=== PATIENT | male | born 1965 | race Caucasian/White ===

== ENCOUNTER 2021-12-18 10:39 | Emergency (ER) | payer SELFPAY ==
[~2021-12-18] VITALS: Ht 185 cm; Wt 90.0 kg
--- NOTE | 2021-12-18 10:57 | ED Cardiac General ---
History of Present Illness General Chief Complaint: Chest Pain Stated Complaint: CHEST PAIN Source: patient Exam Limitations: no limitations History of Present Illness Date Seen by Provider: Dec 18, 2021 Time Seen by Provider: 10:42 Initial Comments 56-year-old male with past medical history of CAD s/p CABG and HTN coming in due to 1 minute of feeling like his chest was "quivering" around midnight last night. He says he woke up from a dream and felt this happening. He says he felt like his chest was shaking but his body was not moving. It went away on its own and he has been at his normal baseline since then. He says that it was not painful, did not feel short of breath, no cough, no fever, abdominal pain, nausea, vomiting, weakness, numbness, or any other concerns. He says he had the bypass surgery around 5 years ago in [place] when he just blacked out out of nowhere and they said his heart was not working like it should. He says the doctor that did the surgeon has since retired, and he also lost insurance and has not had follow-up in some time. He says he takes a baby aspirin every once while but otherwise is not taking any other medications. He said he used to be on lisinopril but is not taking that. He says he is never really been on any blood thinners that he knows of. He is otherwise denying any other acute complaints Allergies and Home Medications Allergies Coded Allergies: No Known Drug Allergies (Unverified , 12/18/21) Patient Home Medication List Home Medication List Reviewed: Yes Review of Systems Review of Systems Constitutional: No chills, No fever EENTM: No Blurred Vision Respiratory: Denies Cough, Denies Shortness of Air Cardiovascular: Denies Chest Pain Gastrointestinal: Denies Abdominal Pain, Denies Diarrhea, Denies Nausea, Denies Vomiting Genitourinary: No Symptoms Reported Musculoskeletal: no symptoms reported Skin: no symptoms reported Psychiatric/Neurological: No Symptoms Reported Endocrine: No Symptoms Reported Hematologic/Lymphatic: No Symptoms Reported All Other Systems Reviewed Negative Unless Noted: Yes Past Epinljh-Gansiv-[id number] Hx Patient Social History Tobacco Use?: Yes (chewing tobacco) Substance use?: No Alcohol Use?: Yes Alcohol type: Beer Past Medical History Surgeries: Yes CABG Physical Exam Vital Signs Vital Signs - First Documented 12/18/21 10:43 Temp 36.9 Pulse 70 Resp 18 B/P (MAP) 174/98 (123) Pulse Ox 97 O2 Delivery Room Air Capillary Refill : Height, Weight, BMI Height: '" Weight: lbs. oz. kg; BMI Method: General Appearance: No Apparent Distress, WD/WN HEENT: PERRL/EOMI, Normal ENT Inspection, Pharynx Normal Neck: Full Range of Motion, Normal Inspection, Non Tender, Supple Respiratory: Chest Non Tender, Lungs Clear, Normal Breath Sounds, No Accessory Muscle Use, No Respiratory Distress Cardiovascular: Regular Rate, Rhythm, No Edema, Normal Peripheral Pulses Gastrointestinal: Normal Bowel Sounds, Non Tender, Soft; No Distended, No Guarding Extremity: Normal Capillary Refill, Normal Inspection, Normal Range of Motion, Non Tender, No Calf Tenderness, No Pedal Edema Neurologic/Psychiatric: Alert, No Motor/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, Normal Mood/Affect Skin: Normal Color, Warm/Dry Lymphatic: No Adenopathy Progress/Results/Core Measures Results/Orders Lab Results Laboratory Tests Test 12/18/21 10:48 Range/Units White Blood Count 6.7 4.3-11.0 10^3/uL Red Blood Count 5.13 4.30-5.52 10^6/uL Hemoglobin 15.5 13.3-17.7 g/dL Hematocrit 45 40-54 % Mean Corpuscular Volume 88 80-99 fL Mean Corpuscular Hemoglobin 30 25-34 pg Mean Corpuscular Hemoglobin Concent 34 32-36 g/dL Red Cell Distribution Width 12.2 10.0-14.5 % Platelet Count 195 130-400 10^3/uL Mean Platelet Volume 11.4 9.0-12.2 fL Immature Granulocyte % (Auto) 0 % Neutrophils (%) (Auto) 62 42-75 % Lymphocytes (%) (Auto) 27 12-44 % Monocytes (%) (Auto) 8 0-12 % Eosinophils (%) (Auto) 3 0-10 % Basophils (%) (Auto) 1 0-10 % Neutrophils # (Auto) 4.1 1.8-7.8 10^3/uL Lymphocytes # (Auto) 1.8 1.0-4.0 10^3/uL Monocytes # (Auto) 0.5 0.0-1.0 10^3/uL Eosinophils # (Auto) 0.2 0.0-0.3 10^3/uL Basophils # (Auto) 0.0 0.0-0.1 10^3/uL Immature Granulocyte # (Auto) 0.0 0.0-0.1 10^3/uL Prothrombin Time 13.2 12.2-14.7 SEC INR Comment 1.0 0.8-1.4 Activated Partial Thromboplast Time 32 24-35 SEC Sodium Level 141 135-145 MMOL/L Potassium Level 4.2 3.6-5.0 MMOL/L Chloride Level 106 98-107 MMOL/L Carbon Dioxide Level 23 21-32 MMOL/L Anion Gap 12 5-14 MMOL/L Blood Urea Nitrogen 14 7-18 MG/DL Creatinine 0.80 0.60-1.30 MG/DL Estimat Glomerular Filtration Rate 104 BUN/Creatinine Ratio 18 Glucose Level 144 H 70-105 MG/DL Calcium Level 9.9 8.5-10.1 MG/DL Corrected Calcium 8.5-10.1 MG/DL Magnesium Level 2.0 1.6-2.4 MG/DL Total Bilirubin 0.5 0.1-1.0 MG/DL Aspartate Amino Transf (AST/SGOT) 22 5-34 U/L Alanine Aminotransferase (ALT/SGPT) 25 0-55 U/L Alkaline Phosphatase 84 40-136 U/L Troponin I < 0.30 <0.30 NG/ML Pro-B-Type Natriuretic Peptide 433.1 H <75.0 PG/ML Total Protein 7.6 6.4-8.2 GM/DL Albumin 4.8 H 3.2-4.5 GM/DL My Orders Orders - BERNICE PENA MD Cbc With Automated Diff (12/18/21 10:57) Magnesium (12/18/21 10:57) Chest 1 View Ap/Pa Only (12/18/21 10:57) Ekg Tracing (12/18/21 10:57) Comprehensive Metabolic Panel (12/18/21 10:57) Protime With Inr (12/18/21 10:57) Partial Thromboplastin Time (12/18/21 10:57) O2 (12/18/21 10:57) Monitor-Rhythm Ecg Trace Only (12/18/21 10:57) Aspirin Chewable Tablet (Baby Aspirin Ch (12/18/21 11:00) Ed Iv/Invasive Line Start (12/18/21 10:57) Troponin I Fs (12/18/21 10:57) Probnp Fs (12/18/21 10:57) Medications Given in ED Current Medications Medications Dose Ordered Sig/Bryan Route Start Time Stop Time Status Last Admin Dose Admin Aspirin 324 mg ONCE ONCE PO 12/18/21 11:00 12/18/21 11:01 DC 12/18/21 11:08 324 MG Vital Signs/I&O 12/18/21 12/18/21 10:43 11:57 Temp 36.9 36.9 Pulse 70 66 Resp 18 18 B/P (MAP) 174/98 (123) 148/89 Pulse Ox 97 97 O2 Delivery Room Air Room Air Progress Progress Note : Progress Note 56-year-old male with above history coming in due to vague symptoms of essentially sounds like his interpretation of palpitations for 1 minute around midnight. ABCs were intact on presentation to the emergency department and vitals were stable. He has been completely asymptomatic for almost 12 hours now. At no point did he have any chest discomfort or shortness of breath. This does not really sound consistent with an ACS type picture. Of unclear exactly what did happen, however he does appear to be stable and well-appearing. I am concerned however that he is Ponce taking any medications that he has previously been prescribed. I will recommend he at least start daily aspirin and will refer him back to [facility] to try to get established. His blood pressure was elevated here, and he used to be on lisinopril. However, he brought his blood pressure cuff from home and was able to provide me a log of numerous blood pressures every day for the past several weeks. He typically runs between 120s to low 130s over 70s. I will hold off on starting him on a blood pressure medicine at this time. Chest x-ray is clear. Basic labs unremarkable including negative troponin. Overall, I believe the patient is stable for discharge with outpatient follow-up. He was sent home with strict return precautions. Initial ECG Impression Date: Dec 18, 2021 Initial ECG Impression Time: 10:44 Initial ECG Rate: 73 Initial ECG Rhythm: Normal Sinus Comment Narrow QRS, normal axis, signs of LVH with high voltages, T wave inversions and ST depressions almost globally which likely secondary to the LVH, no STEMI Diagnostic Imaging Diagonstic Imaging: Xray (chest) Comments [facility] [place], [place] NAME: SHAKEEL DOSHI [facility] REC#: [id number] PT STATUS: REG ER : 1965 PHYSICIAN: BERNICE PENA MD ADMIT DATE: 12/18/21/ER FS Signed Date of Exam:12/18/21 CHEST 1 VIEW AP/PA ONLY EXAMINATION: Chest 1 view HISTORY: Chest pain. COMPARISON: None available. FINDINGS: The lung volumes are normal. No focal consolidation is seen. No large pleural effusion or pneumothorax is seen. The cardiomediastinal silhouette is normal in size with post-CABG changes noted. No acute osseous abnormality is seen. IMPRESSION: 1. No acute pleuroparenchymal process. Dictated by: Dictated on workstation # [id number] Dict: 12/18/21 1118 Trans: 12/18/21 1120 CVB [id number] Interpreted by: IDA CARD DO Electronically signed by: IDA CARD DO 12/18/21 1120 Departure Impression Primary Impression: Palpitations Disposition: HOME, SELF-CARE Condition: Stable Departure-Patient Inst. Decision time for Depature: 11:59 Referrals: [facility] [place] ([place]P/Family) Primary Care Physician Patient Instructions: Palpitations (DC) Add. Discharge Instructions: I think most likely what you are experiencing is what we call palpitations. This has been your heart tends to race and you can have different sensations over your chest such as what you were feeling with the quavering. If this happens again it is prolonged, not stopping, you have chest pain, shortness of breath, or any other concerns then please come back to the ER. Otherwise, I recommend you follow-up with [facility] here to get established and to restart some medications that you may be requiring, especially since you had open heart surgery. I do recommend you take baby aspirin daily. Work/School Note: Work Release Form Date Seen in the Emergency Department: Dec 18, 2021 Return to Work: Dec 18, 2021 Restrictions: No Restrictions BERNICE PENA MD Dec 18, 2021 10:57
[2021-12-18] MEDS ORDERED: inSUlin (REGULAR) HUMAN 1 UNIT/0.01 ML (CHARGE PER UNIT) IV ONE (11:00)
[2021-12-18] MEDS ORDERED: ASPIRIN 81 MG CHEW (CHILDREN'S ASA) PO ONE (11:00)
[2021-12-18] MEDS ORDERED: LACTATED RINGERS 1,000 ML IV SCH (11:00)
--- NOTE | 2021-12-18 11:19 | Diagnostic Imaging Report ---
EXAMINATION: Chest 1 view HISTORY: Chest pain. COMPARISON: None available. FINDINGS: The lung volumes are normal. No focal consolidation is seen. No large pleural effusion or pneumothorax is seen. The cardiomediastinal silhouette is normal in size with post-CABG changes noted. No acute osseous abnormality is seen. IMPRESSION: 1. No acute pleuroparenchymal process. Dictated by: Dictated on workstation # [id number]
[2021-12-18 11:25] LABS: PROTHROMBIN TIME PATIENT 13.2 SEC (12.2-14.7)
[2021-12-18 11:27] LABS: BASOPHILS % (AUTO) 1 % (0-10); EOSINOPHILS # (AUTO) 0.2 10^3/uL (0.0-0.3); EOSINOPHILS % (AUTO) 3 % (0-10); HEMATOCRIT 45 % (40-54); HEMOGLOBIN 15.5 g/dL (13.3-17.7); LYMPHOCYTES # (AUTO) 1.8 10^3/uL (1.0-4.0); LYMPHOCYTES % (AUTO) 27 % (12-44); MEAN CORPUSCULAR HEMOGLOBIN 30 pg (25-34); MEAN CORPUSCULAR HGB CONC 34 g/dL (32-36); MEAN CORPUSCULAR VOLUME 88 fL (80-99); MEAN PLATELET VOLUME 11.4 fL (9.0-12.2); MONOCYTES # (AUTO) 0.5 10^3/uL (0.0-1.0); MONOCYTES % (AUTO) 8 % (0-12); NEUTROPHILS # (AUTO) 4.1 10^3/uL (1.8-7.8); NEUTROPHILS % (AUTO) 62 % (42-75); PLATELET COUNT 195 10^3/uL (130-400); WHITE BLOOD COUNT 6.7 10^3/uL (4.3-11.0)
[2021-12-18 11:38] LABS: ALANINE AMINOTRANSFERASE 25 U/L (0-55); ALBUMIN 4.8 GM/DL (3.2-4.5); ALKALINE PHOSPHATASE 84 U/L (40-136); BILIRUBIN,TOTAL 0.5 MG/DL (0.1-1.0); BUN/CREATININE RATIO 18; CALCIUM 9.9 MG/DL (8.5-10.1); CARBON DIOXIDE 23 MMOL/L (21-32); CHLORIDE 106 MMOL/L (98-107); GFR ESTIMATED 104; GLUCOSE 144 MG/DL (70-105); POTASSIUM 4.2 MMOL/L (3.6-5.0); SODIUM 141 MMOL/L (135-145); TOTAL PROTEIN 7.6 GM/DL (6.4-8.2)
[2021-12-18 11:57] VITALS: BP 148/89
== END 2021-12-18 11:58 | disposition home or self-care (01) ==
LOC: EDUNIT# 10:39 → ER FS 10:41
DX: R00.2 Palpitations (principal); Z72.0 Tobacco use
CPT/HCPCS: 36415; 71045; 80053; 83735; 83880; 84484; 85025; 85610; 85730; 93005; 93041

== ENCOUNTER 2022-03-02 15:50 | Emergency (ER) | payer SELFPAY ==
[2022-03-02 15:58] VITALS: BP 142/89
[2022-03-02 16:09] LABS: BILIRUBIN,URINE NEGATIVE (NEGATIVE); CLARITY,URINE CLEAR; COLOR,URINE YELLOW; GLUCOSE, URINE (UA) NEGATIVE (NEGATIVE); KETONES,URINE NEGATIVE (NEGATIVE); LEUKOCYTE ESTERASE ,URINE NEGATIVE (NEGATIVE); NITRITE,URINE NEGATIVE (NEGATIVE); PROTEIN,URINE NEGATIVE (NEGATIVE)
[2022-03-02] MEDS ORDERED: NS IV 1000 ML 1,000 ML IV STA (16:16)
[2022-03-02 16:17] LABS: BASOPHILS % (AUTO) 1 % (0-10); EOSINOPHILS # (AUTO) 0.1 10^3/uL (0.0-0.3); EOSINOPHILS % (AUTO) 1 % (0-10); HEMATOCRIT 36 % (40-54); HEMOGLOBIN 12.4 g/dL (13.3-17.7); LYMPHOCYTES # (AUTO) 1.5 10^3/uL (1.0-4.0); LYMPHOCYTES % (AUTO) 17 % (12-44); MEAN CORPUSCULAR HEMOGLOBIN 30 pg (25-34); MEAN CORPUSCULAR HGB CONC 34 g/dL (32-36); MEAN CORPUSCULAR VOLUME 87 fL (80-99); MEAN PLATELET VOLUME 10.8 fL (9.0-12.2); MONOCYTES # (AUTO) 0.9 10^3/uL (0.0-1.0); MONOCYTES % (AUTO) 10 % (0-12); NEUTROPHILS # (AUTO) 6.3 10^3/uL (1.8-7.8); NEUTROPHILS % (AUTO) 71 % (42-75); PLATELET COUNT 246 10^3/uL (130-400); WHITE BLOOD COUNT 8.9 10^3/uL (4.3-11.0)
[2022-03-02 16:20] LABS: BACTERIA,URINE TRACE /HPF
[2022-03-02 16:21] LABS: AMPHETAMINE SCREEN, URINE NEGATIVE (NEGATIVE); BARBITURATE SCREEN URINE NEGATIVE (NEGATIVE); BENZODIAZEPINES SCREEN URINE NEGATIVE (NEGATIVE); CANNABINOID SCREEN, URINE NEGATIVE (NEGATIVE); COCAINE SCREEN URINE NEGATIVE (NEGATIVE); METHADONE STAT NEGATIVE (NEGATIVE); OPIATE SCREEN URINE NEGATIVE (NEGATIVE); OXYCODONE STAT NEGATIVE (NEGATIVE); PROPOXYPHENE STAT NEGATIVE (NEGATIVE); SQUAMOUS EPITHELIAL CELL,UR 0-2 /HPF; TRICYCLIC ANTIDEPRESSANTS SCRE NEGATIVE (NEGATIVE)
[2022-03-02 16:49] LABS: SODIUM 140 MMOL/L (135-145)
[2022-03-02 16:50] LABS: ACETAMINOPHEN < 10 UG/ML (10-30); ALANINE AMINOTRANSFERASE 19 U/L (0-55); ALBUMIN 4.1 GM/DL (3.2-4.5); ALKALINE PHOSPHATASE 73 U/L (40-136); BILIRUBIN,TOTAL 1.1 MG/DL (0.1-1.0); BUN/CREATININE RATIO 17; CALCIUM 9.5 MG/DL (8.5-10.1); CARBON DIOXIDE 24 MMOL/L (21-32); CHLORIDE 103 MMOL/L (98-107); CREATININE SERUM 0.81 MG/DL (0.60-1.30); GFR ESTIMATED 103; GLUCOSE 120 MG/DL (70-105); POTASSIUM 3.4 MMOL/L (3.6-5.0); SALICYLATE < 0.3 MG/DL (5.0-20.0); TOTAL PROTEIN 6.1 GM/DL (6.4-8.2)
--- NOTE | 2022-03-02 16:51 | Diagnostic Imaging Report ---
EXAMINATION: Chest radiograph, portable AP view. DATE: 03/02/2022 4:49 PM INDICATION: 56-year-old male, left-sided chest pain. Syncope. COMPARISON: December 18, 2021. FINDINGS: There are median sternotomy wires. Heart size and mediastinal contours are unchanged. There is no identified pneumothorax. There is no large pleural effusion. There is no identified focal airspace consolidation. IMPRESSION: No identified acute cardiopulmonary abnormality. Dictated by: Dictated on workstation # [id number]
--- NOTE | 2022-03-02 16:51 | Diagnostic Imaging Report ---
PROCEDURE: CT head without contrast. TECHNIQUE: Multiple contiguous axial images were obtained through the brain without the use of intravenous contrast. Auto Exposure Controls were utilized during the CT exam to meet ALARA standards for radiation dose reduction. INDICATION: Headache and syncope CT HEAD: CT images of the head were obtained. FINDINGS: Ventricles and sulci are within normal limits for size. There is no intracranial hemorrhage identified. There is no abnormal mass effect or shift of midline structures. IMPRESSION: Unremarkable CT of the head. Dictated by: Dictated on workstation # [id number]
--- NOTE | 2022-03-02 17:22 | ED General ---
General Chief Complaint: Altered Mental Status Stated Complaint: AMS Nursing Triage Note: Patient presents to the ED with c/o confusion. Reports he was driving his truck and the next thing he remembers is waking up in his driveway with no recollection of the past 1 hour. Upon arrival to the ED patient is alert and oriented x4. Source of Information: Patient History of Present Illness Date Seen by Provider: March 02, 2022 Time Seen by Provider: 15:53 Initial Comments 56-year-old male presenting with concern for possible syncopal episode. He states that around 1 PM he had gone to [employer] and then does not remember driving back to his house or pulling into his driveway. He remembers waking up in his truck and looking around and thinking he did not know where he was. He started to drive away and then realized that he was at his own house. Then he had gone over to girlfriend's house and after speaking with her and some family that he convinced him to come to the emergency department to be evaluated. He was having some mild headache to the right side of his head. He denied any fall or injury. He had felt like he had some pain in his chest earlier in the day. He was not having any of that now. He had complained of some left sided lower abdominal pain a few days ago with a loose stool and saw some bright red blood but none since then. He denies any pain with urination. He states he has been under extra stress and not been sleeping well. He also santana d tried to stop drinking alcohol 9 months ago and has been dry since stopping cold turkey 9 months ago but a few days ago he drank a sixpack of beer. He denies having any alcohol or drugs today. He has no fever, chills, pain with urination, back pain, cough, shortness of breath, vision change, nausea, vomiting. Timing/Duration: Gone Now Severity: Moderate Associated Systoms: Chest Pain (earlier today he had some mild pain to left chest but could not tell if it was inside his chest or more chest wall); No Cough, No Diaphoresis, No Fever/Chills; Headaches (mild pressure to right side of head); No Loss of Appetite, No Malaise, No Nausea/Vomiting, No Rash, No Seizure, No Shortness of Air; Syncope; No Weakness Allergies and Home Medications Allergies Coded Allergies: No Known Drug Allergies (Unverified , 12/18/21) Patient Home Medication List Home Medication List Reviewed: Yes Review of Systems Review of Systems Constitutional: No chills, No fever EENTM: other (chronic ringing in right ear for several years); No ear discharge, No hearing loss, No ear pain, No blurred vision, No eye pain, No vision loss, No mouth pain, No epistaxis, No nose congestion, No throat pain Respiratory: No cough, No dyspnea on exertion, No short of breath Cardiovascular: see HPI Gastrointestinal: see HPI Genitourinary: No dysuria, No hematuria Musculoskeletal: No joint swelling, No neck pain Skin: No change in color, No rash Psychiatric/Neurological: See HPI; Denies Numbness, Denies Paresthesia, Denies Tingling, Denies Tremors, Denies Weakness Hematologic/Lymphatic: Denies Blood Clots, Denies Easy Bleeding, Denies Easy Bruising Immunological/Allergic: no symptoms reported Past Zkugezs-Qnqrgc-Yenqwa Hx Patient Social History Tobacco Use?: Yes Smoking Status: Heavy Tobacco Smoker Substance use?: No Alcohol Use?: Yes Alcohol type: Beer Alcohol Frequency: Once in a while Pt feels they are or have been: No Immunizations Up To Date First/Initial COVID19 Vaccinat: Not currently vaccinated Past Medical History Surgery/Hospitalization HX: TRIPLE BYPASS; Palpatations Surgeries: Yes CABG Physical Exam Vital Signs Vital Signs - First Documented 03/02/22 15:58 Temp 36.6 Pulse 67 Resp 18 B/P (MAP) 142/89 (106) Pulse Ox 96 O2 Delivery Room Air Capillary Refill : Less Than 3 Seconds Height, Weight, BMI Height: '" Weight: lbs. oz. kg; 26.00 BMI Method: General Appearance: No Apparent Distress, WD/WN HEENT: PERRL/EOMI, Normal ENT Inspection, Pharynx Normal Neck: Full Range of Motion, Normal Inspection, Non Tender, Supple; No Carotid Bruit Respiratory: Chest Non Tender, Lungs Clear, Normal Breath Sounds, No Accessory Muscle Use, No Respiratory Distress Cardiovascular: Regular Rate, Rhythm, No Edema, No Murmur, Normal Peripheral Pulses Gastrointestinal: Normal Bowel Sounds, No Pulsatile Mass, Non Tender, Soft Rectal: Deferred Back: No CVA Tenderness, No Vertebral Tenderness Extremity: Normal Capillary Refill, Normal Inspection, Normal Range of Motion, Non Tender, No Calf Tenderness, No Pedal Edema Neurologic/Psychiatric: Alert, Oriented x3, No Motor/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, 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 Norm as Tested Skin: Normal Color, Warm/Dry Progress/Results/Core Measures Suspected Sepsis SIRS Temperature: Pulse: 67 Respiratory Rate: 18 Laboratory Tests 03/02/22 16:15: White Blood Count 8.9 Blood Pressure 142 /89 Mean: 106 Laboratory Tests 03/02/22 16:15: Creatinine 0.81, Platelet Count 246, Total Bilirubin 1.1H Results/Orders Lab Results Laboratory Tests Test 03/02/22 15:58 03/02/22 16:15 Range/Units Urine Color YELLOW Urine Clarity CLEAR Urine pH 6.0 5-9 Urine Specific [place] 1.020 1.016-1.022 Urine Protein NEGATIVE NEGATIVE Urine Glucose (UA) NEGATIVE NEGATIVE Urine Ketones NEGATIVE NEGATIVE Urine Nitrite NEGATIVE NEGATIVE Urine Bilirubin NEGATIVE NEGATIVE Urine Urobilinogen 1.0 < = 1.0 MG/DL Urine Leukocyte Esterase NEGATIVE NEGATIVE Urine RBC (Auto) TRACE-I H NEGATIVE Urine RBC 5-10 H /HPF Urine WBC NONE /HPF Urine Squamous Epithelial Cells 0-2 /HPF Urine Crystals NONE /LPF Urine Bacteria TRACE /HPF Urine Casts NONE /LPF Urine Mucus SMALL H /LPF Urine Culture Indicated NO Urine Opiates Screen NEGATIVE NEGATIVE Urine Oxycodone Screen NEGATIVE NEGATIVE Urine Methadone Screen NEGATIVE NEGATIVE Urine Propoxyphene Screen NEGATIVE NEGATIVE Urine Barbiturates Screen NEGATIVE NEGATIVE Ur Tricyclic Antidepressants Screen NEGATIVE NEGATIVE Urine Phencyclidine Screen NEGATIVE NEGATIVE Urine Amphetamines Screen NEGATIVE NEGATIVE Urine Methamphetamines Screen NEGATIVE NEGATIVE Urine Benzodiazepines Screen NEGATIVE NEGATIVE Urine Cocaine Screen NEGATIVE NEGATIVE Urine Cannabinoids Screen NEGATIVE NEGATIVE White Blood Count 8.9 4.3-11.0 10^3/uL Red Blood Count 4.18 L 4.30-5.52 10^6/uL Hemoglobin 12.4 L 13.3-17.7 g/dL Hematocrit 36 L 40-54 % Mean Corpuscular Volume 87 80-99 fL Mean Corpuscular Hemoglobin 30 25-34 pg Mean Corpuscular Hemoglobin Concent 34 32-36 g/dL Red Cell Distribution Width 12.6 10.0-14.5 % Platelet Count 246 130-400 10^3/uL Mean Platelet Volume 10.8 9.0-12.2 fL Immature Granulocyte % (Auto) 0 % Neutrophils (%) (Auto) 71 42-75 % Lymphocytes (%) (Auto) 17 12-44 % Monocytes (%) (Auto) 10 0-12 % Eosinophils (%) (Auto) 1 0-10 % Basophils (%) (Auto) 1 0-10 % Neutrophils # (Auto) 6.3 1.8-7.8 10^3/uL Lymphocytes # (Auto) 1.5 1.0-4.0 10^3/uL Monocytes # (Auto) 0.9 0.0-1.0 10^3/uL Eosinophils # (Auto) 0.1 0.0-0.3 10^3/uL Basophils # (Auto) 0.0 0.0-0.1 10^3/uL Immature Granulocyte # (Auto) 0.0 0.0-0.1 10^3/uL Sodium Level 140 135-145 MMOL/L Potassium Level 3.4 L 3.6-5.0 MMOL/L Chloride Level 103 98-107 MMOL/L Carbon Dioxide Level 24 21-32 MMOL/L Anion Gap 13 5-14 MMOL/L Blood Urea Nitrogen 14 7-18 MG/DL Creatinine 0.81 0.60-1.30 MG/DL Estimat Glomerular Filtration Rate 103 BUN/Creatinine Ratio 17 Glucose Level 120 H 70-105 MG/DL Calcium Level 9.5 8.5-10.1 MG/DL Corrected Calcium 9.4 8.5-10.1 MG/DL Total Bilirubin 1.1 H 0.1-1.0 MG/DL Aspartate Amino Transf (AST/SGOT) 19 5-34 U/L Alanine Aminotransferase (ALT/SGPT) 19 0-55 U/L Alkaline Phosphatase 73 40-136 U/L Total Protein 6.1 L 6.4-8.2 GM/DL Albumin 4.1 3.2-4.5 GM/DL Salicylates Level < 0.3 L 5.0-20.0 MG/DL Acetaminophen Level < 10 L 10-30 UG/ML Serum Alcohol < 10 <10 MG/DL My Orders Orders - TEMITOPE GERMAIN MD Ua Culture If Indicated (03/02/22 15:55) Cbc With Automated Diff (03/02/22 15:55) Comprehensive Metabolic Panel (03/02/22 15:55) Alcohol (03/02/22 15:55) Drug Screen Stat (Urine) (03/02/22 15:55) Acetaminophen (03/02/22 15:55) Salicylate (03/02/22 15:55) Ekg Tracing (03/02/22 15:55) Ed Iv/Invasive Line Start (03/02/22 15:55) Monitor-Rhythm Ecg Trace Only (03/02/22 15:55) Ct Head Wo (03/02/22 16:16) Chest 1 View Ap/Pa Only (03/02/22 16:16) Ns Iv 1000 Ml (Sodium Chloride 0.9%) (03/02/22 16:16) Vital Signs/I&O 03/02/22 15:58 Temp 36.6 Pulse 67 Resp 18 B/P (MAP) 142/89 (106) Pulse Ox 96 O2 Delivery Room Air Capillary Refill : Less Than 3 Seconds Blood Pressure Mean: 106 Progress Note #1: Progress Note No acute abnormality on his physical exam. Advised patient that we will check basic labs and electrocardiogram as well as chest x-ray and CT scan of his head. Try giving some normal saline 1 L IV fluid for hydration. Cardiac telemetry monitoring to see if he had any arrhythmia or ischemic changes Differential diagnosis includes syncope, atrial fibrillation, stress reaction, stroke, heart attack, pneumonia, anemia, panic attack, dehydration, hypotension, hyperglycemia, alcohol abuse Progress Note #2: Progress Note Labs appear stable without elevated white blood cell count or signs of severe anemia. His chemistry panel appeared stable without acute significant abnormality to account for symptoms. Electrocardiogram was stable without ST elevation or ischemic changes. The CT scan of his head and chest did not show any acute process. His chest x-ray reveals clear without acute process. No sign of cardiomegaly, pleural effusion, pneumonia. Urinalysis had mild elevation of specific gravity 1.020. There was no sign of infection. Urine drug screen was negative and his alcohol, salicylate, acetaminophen levels were all negative. Counseled patient on results and findings. He stated he was feeling better after the fluids were given. Advised that this may have been more of a stress reaction from him not sleeping well and being under extra stress recently. He also could have had some dehydration and that exacerbated things. There were no signs of acute coronary syndrome or arrhythmia. No stroke seen on imaging or exam. No acute electrolyte abnormality to account for his symptoms. Counseled on follow-up and return precautions. Advised to return immediately or seek medical care if he was having worsening or new symptoms. Otherwise check back with the clinic this next week about follow-up and see if there was further testing they wanted to do. ECG Initial ECG Impression Date: March 02, 2022 Initial ECG Impression Time: 16:25 Initial ECG Rate: 65 Initial ECG Rhythm: Normal Sinus Initial ECG Comparisson: Unchanged Comment Normal sinus rhythm with a heart rate of 65 bpm. SC interval [address] elevation. LVH with repolarization changes. QT interval 481 ms with a QTc interval 493 ms. Overall tracing appears similar to prior tracing in the system. Diagnostic Imaging Diagonstic Imaging: Xray Plain Films/CT/US/NM/MRI: chest [facility] [place] [place] NAME: SHAKEEL DOSHI [facility] REC#: [id number] PT STATUS: REG ER : 1965 PHYSICIAN: TEMITOPE GERMAIN MD ADMIT DATE: 03/02/22/ER FS Signed Date of Exam:03/02/22 CHEST 1 VIEW AP/PA ONLY EXAMINATION: Chest radiograph, portable AP view. DATE: 03/02/2022 4:49 PM INDICATION: 56-year-old male, left-sided chest pain. Syncope. COMPARISON: December 18, 2021. FINDINGS: There are median sternotomy wires. Heart size and mediastinal contours are unchanged. There is no identified pneumothorax. There is no large pleural effusion. There is no identified focal airspace consolidation. IMPRESSION: No identified acute cardiopulmonary abnormality. Dictated by: Dictated on workstation # [id number] Dict: 03/02/22 1649 Trans: 03/02/221650 [facility] [id number] Interpreted by: WILD PALMA MD Electronically signed by: WILD PALMA MD 03/02/22 165 Reviewed: Reviewed by Me Diagonstic Imaging: CT Plain Films/CT/US/NM/MRI: head Comments [facility] [place] [place] NAME: SHAKEEL DOSHI [facility] REC#: [id number] PT STATUS: REG ER : 1965 PHYSICIAN: TEMITOPE GERMAIN MD ADMIT DATE: 03/02/22/ER FS Signed Date of Exam:03/02/22 CT HEAD WO PROCEDURE: CT head without contrast. TECHNIQUE: Multiple contiguous axial images were obtained through the brain without the use of intravenous contrast. Auto Exposure Controls were utilized during the CT exam to meet ALARA standards for radiation dose reduction. INDICATION: Headache and syncope CT HEAD: CT images of the head were obtained. FINDINGS: Ventricles and sulci are within normal limits for size. There is no intracranial hemorrhage identified. There is no abnormal mass effect or shift of midline structures. IMPRESSION: Unremarkable CT of the head. Dictated by: Dictated on workstation # [id number] Dict: 03/02/22 1649 Trans: 03/02/221649 [id number] Interpreted by: SANDRA CARTER MD Electronically signed by: SANDRA CARTER MD 03/02/221649 Reviewed: Reviewed by Me Departure Impression Primary Impression: Stress reaction Additional Impressions: Syncope Qualified Codes: R55 - Syncope and collapse Dehydration Disposition: HOME, SELF-CARE Condition: Stable Departure-Patient Inst. Decision time for Depature: 17:20 Referrals: [facility] (PCP/Family) Primary Care Physician Patient Instructions: Anxiety, Adult ED, Dehydration, Adult ED, Fainting, Adult ED, Stress Add. Discharge Instructions: Try to drink more fluids and stay better hydrated. Drink plenty of water and electrolyte drinks to help with this. Try to get better rest and sleep on a more regular schedule. Check with your primary care doctor for continued concerns and to see if there was any other work-up or evaluation that they felt was necessary. Call on Saturday when the clinic reopens to see about setting a follow-up appointment. Over the weekend if you have worsening symptoms or recurrent problems return or seek medical care for further evaluation. All discharge instructions reviewed with patient and/or family. Voiced understanding. TEMITOPE GERMAIN MD March 02, 2022 17:22
== END 2022-03-02 17:35 | disposition home or self-care (01) ==
LOC: EDUNIT# 15:50 → ER FS 15:51
DX: R55 Syncope and collapse (principal); F43.9 Reaction to severe stress, unspecified; E86.0 Dehydration; F17.200 Nicotine dependence, unspecified, uncomplicated
CPT/HCPCS: 36415; 70450; 71045; 80053; 80306; 81000; 85025; 93041; 99284; G0480 ×3; 80320; 80329

== ENCOUNTER 2022-08-03 17:38 | Inpatient (IN) | payer SELFPAY ==
[~2022-08-03] VITALS: Ht 185.5 cm; Wt 79.6 kg
--- NOTE | 2022-08-03 17:55 | ED Lower Extremity ---
General Chief Complaint: Lower Extremity Stated Complaint: SWELLING History of Present Illness Date Seen by Provider: Aug 03, 2022 Time Seen by Provider: 17:50 Initial Comments 56-year-old male here for increase shortness of breath increased swelling. Patient has been having swelling for about a month. He does have a cardiac history where he has had heart attack in the past. He was seen Dr. Rose but he is did have his insurance and so is unable to see cardiology. Patient having increased shortness of breath over the past month increased lower extremity edema. Now he is got edema up into his abdomen. Having shortness of breath unable to walk across the room. He is on metoprolol 25 ER lisinopril aspirin atorvastatin. Was seen by his primary care provider and states he was given some diuretics for about 7 days where he started a large dose and tapered down. The swelling went down with that but now it is back. Allergies and Home Medications Allergies Coded Allergies: No Known Drug Allergies (Unverified , 12/18/21) Patient Home Medication List Home Medication List Reviewed: Yes Review of Systems Constitutional: see HPI Past Rstpike-Jngyov-Wrxour Hx Patient Social History Tobacco Use?: No Immunizations Up To Date First/Initial COVID19 Vaccinat: Not currently vaccinated Past Medical History Surgery/Hospitalization HX: TRIPLE BYPASS; Palpatations Surgeries: Yes CABG Physical Exam Vital Signs Vital Signs - First Documented 08/03/22 17:40 Temp 36.7 Pulse 105 Resp 30 B/P (MAP) 150/92 (111) Pulse Ox 95 O2 Delivery Room Air Capillary Refill : Height, Weight, BMI Height: '" Weight: lbs. oz. kg; 26.00 BMI Method: General Appearance: WD/WN, mild distress HEENT: PERRL/EOMI, pharynx normal Neck: non-tender, supple Cardiovascular: regular rate, rhythm, no murmur Respiratory: crackles, wheezing Gastrointestinal: other (distended. noted pitting edema on lower abdomen) Legs: bilateral leg swelling Neurologic/Psychiatric: alert, normal mood/affect Skin: normal color, warm/dry Progress/Results/Core Measures Results/Orders Lab Results Laboratory Tests Test 08/03/22 17:52 Range/Units White Blood Count 14.8 H 4.3-11.0 10^3/uL Red Blood Count 5.17 4.30-5.52 10^6/uL Hemoglobin 14.9 13.3-17.7 g/dL Hematocrit 46 40-54 % Mean Corpuscular Volume 90 80-99 fL Mean Corpuscular Hemoglobin 29 25-34 pg Mean Corpuscular Hemoglobin Concent 32 32-36 g/dL Red Cell Distribution Width 15.1 H 10.0-14.5 % Platelet Count 236 130-400 10^3/uL Mean Platelet Volume 11.3 9.0-12.2 fL Immature Granulocyte % (Auto) 0 % Neutrophils (%) (Auto) 80 H 42-75 % Lymphocytes (%) (Auto) 10 L 12-44 % Monocytes (%) (Auto) 10 0-12 % Eosinophils (%) (Auto) 0 0-10 % Basophils (%) (Auto) 1 0-10 % Neutrophils # (Auto) 11.8 H 1.8-7.8 10^3/uL Lymphocytes # (Auto) 1.4 1.0-4.0 10^3/uL Monocytes # (Auto) 1.4 H 0.0-1.0 10^3/uL Eosinophils # (Auto) 0.0 0.0-0.3 10^3/uL Basophils # (Auto) 0.1 0.0-0.1 10^3/uL Immature Granulocyte # (Auto) 0.1 0.0-0.1 10^3/uL Neutrophils % (Manual) 91 % Lymphocytes % (Manual) 5 % Monocytes % (Manual) 4 % Prothrombin Time 14.8 H 12.2-14.7 SEC INR Comment 1.1 0.8-1.4 Activated Partial Thromboplast Time 32 24-35 SEC Sodium Level 140 135-145 MMOL/L Potassium Level 4.3 3.6-5.0 MMOL/L Chloride Level 103 98-107 MMOL/L Carbon Dioxide Level 24 21-32 MMOL/L Anion Gap 13 5-14 MMOL/L Blood Urea Nitrogen 13 7-18 MG/DL Creatinine 0.81 0.60-1.30 MG/DL Estimat Glomerular Filtration Rate 103 BUN/Creatinine Ratio 16 Glucose Level 92 70-105 MG/DL Calcium Level 9.7 8.5-10.1 MG/DL Corrected Calcium 9.6 8.5-10.1 MG/DL Magnesium Level 1.9 1.6-2.4 MG/DL Total Bilirubin 1.9 H 0.1-1.0 MG/DL Aspartate Amino Transf (AST/SGOT) 27 5-34 U/L Alanine Aminotransferase (ALT/SGPT) 17 0-55 U/L Alkaline Phosphatase 186 H 40-136 U/L Troponin I < 0.30 <0.30 NG/ML Pro-B-Type Natriuretic Peptide 4956.0 H <125.0 PG/ML Total Protein 6.8 6.4-8.2 GM/DL Albumin 4.1 3.2-4.5 GM/DL My Orders Orders - BRENNEN VASQUEZ MD Cbc And Manual Diff (08/03/22 17:50) Comprehensive Metabolic Panel (08/03/22 17:50) Bnp Martinez (08/03/22 17:50) Probnp Fs (08/03/22 17:50) Ed Iv/Invasive Line Start (08/03/22 17:50) Chest Pa/Lat (2 View) (08/03/22 17:50) Magnesium (08/03/22 18:01) Ekg Tracing (08/03/22 18:01) Protime With Inr (08/03/22 18:01) Partial Thromboplastin Time (08/03/22 18:01) Monitor-Rhythm Ecg Trace Only (08/03/22 18:01) Troponin I Fs (08/03/22 18:01) Furosemide Injection (Lasix Injection) (08/03/22 19:00) Furosemide Injection (Lasix Injection) (08/03/22 18:52) Medications Given in ED Current Medications Medications Dose Ordered Sig/Bryan Route Start Time Stop Time Status Last Admin Dose Admin Furosemide 40 mg ONCE ONCE IVP 08/03/22 19:00 08/03/22 19:01 DC 08/03/22 18:55 40 MG Vital Signs/I&O 08/03/22 17:40 Temp 36.7 Pulse 105 Resp 30 B/P (MAP) 150/92 (111) Pulse Ox 95 O2 Delivery Room Air Progress Progress Note : Time: 19:16 Progress Note Plan for transfer to [facility] for admission Initial ECG Impression Date: Aug 03, 2022 Initial ECG Impression Time: 17:52 Initial ECG Rhythm: SVT Initial ECG Impression: Nonspecific Changes Diagnostic Imaging Diagonstic Imaging: Xray Comments [place], [place] NAME: SHAKEEL DOSHI [facility] REC#: [id number] PT STATUS: REG ER : 1965 PHYSICIAN: BRENNEN VASQUEZ MD ADMIT DATE: 08/03/22/ER FS Draft Date of Exam:08/03/22 CHEST PA/LAT (2 VIEW) INDICATION: Shortness of breath. COMPARISON: 03/02/2022. TECHNIQUE: Two radiographs of the chest dated 08/03/2022. FINDINGS: Postsurgical changes of a median sternotomy are again identified. The cardiac silhouette appears enlarged, increased in size since the prior examination. Minimal central pulmonary vascular congestion. Small bibasilar pleural effusions are present. The upper lungs are clear. No pneumothorax. No acute osseous abnormality. IMPRESSION: Small bibasilar pleural effusions with adjacent minimal atelectasis and/or pneumonitis. Cardiomegaly, increased since the prior examination with minimal central pulmonary vascular congestion. Dictated on workstation # [id number] Dict: 08/03/221809 Trans: 08/03/221818 [id number] Interpreted by: MICHAEL YOUNG MD Electronically signed by: Departure Impression Primary Impression: Acute CHF (congestive heart failure) Qualified Codes: I50.9 - Heart failure, unspecified Disposition: 30 STILL A PATIENT Condition: Stable/Unchanged Admissions Decision to Admit/Date: Aug 03, 2022 Time/Decision to Admit Time: 19:12 Transfer Transfer Reason: Exceeds level of care Time Spoke to Accepting Phy: 19:12 Transfer Progress Notes Spoke with Dr. Costa who accepted. Spoke with Dr. Hairston who evaluated the EKG feels like it is sinus rhythm with a lot of artifact in it. Okay to admit and transfer to [facility]. Method of Transfer: EMS Departure-Patient Inst. Referrals: [facility] [place] (PCP/Family) Primary Care Physician Add. Discharge Instructions: Plan for transfer to [facility] for further inpatient care All discharge instructions reviewed with patient and/or family. Voiced understanding. BRENNEN VASQUEZ MD Aug 03, 2022 17:55
[2022-08-03 18:01] LABS: BASOPHILS # (AUTO) 0.1 10^3/uL (0.0-0.1); BASOPHILS % (AUTO) 1 % (0-10); EOSINOPHILS % (AUTO) 0 % (0-10); HEMATOCRIT 46 % (40-54); HEMOGLOBIN 14.9 g/dL (13.3-17.7); LYMPHOCYTES # (AUTO) 1.4 10^3/uL (1.0-4.0); LYMPHOCYTES % (AUTO) 10 % (12-44); MEAN CORPUSCULAR HEMOGLOBIN 29 pg (25-34); MEAN CORPUSCULAR HGB CONC 32 g/dL (32-36); MEAN CORPUSCULAR VOLUME 90 fL (80-99); MEAN PLATELET VOLUME 11.3 fL (9.0-12.2); MONOCYTES # (AUTO) 1.4 10^3/uL (0.0-1.0); MONOCYTES % (AUTO) 10 % (0-12); NEUTROPHILS # (AUTO) 11.8 10^3/uL (1.8-7.8); NEUTROPHILS % (AUTO) 80 % (42-75); PLATELET COUNT 236 10^3/uL (130-400); WHITE BLOOD COUNT 14.8 10^3/uL (4.3-11.0)
[2022-08-03 18:14] LABS: INR 1.1 (0.8-1.4); PROTHROMBIN TIME PATIENT 14.8 SEC (12.2-14.7)
--- NOTE | 2022-08-03 18:20 | Diagnostic Imaging Report ---
INDICATION: Shortness of breath. COMPARISON: 03/02/2022. TECHNIQUE: Two radiographs of the chest dated 08/03/2022. FINDINGS: Postsurgical changes of a median sternotomy are again identified. The cardiac silhouette appears enlarged, increased in size since the prior examination. Minimal central pulmonary vascular congestion. Small bibasilar pleural effusions are present. The upper lungs are clear. No pneumothorax. No acute osseous abnormality. IMPRESSION: Small bibasilar pleural effusions with adjacent minimal atelectasis and/or pneumonitis. Cardiomegaly, increased since the prior examination with minimal central pulmonary vascular congestion. Dictated by: Dictated on workstation # [id number]
[2022-08-03 18:34] LABS: ALANINE AMINOTRANSFERASE 17 U/L (0-55); ALKALINE PHOSPHATASE 186 U/L (40-136); BILIRUBIN,TOTAL 1.9 MG/DL (0.1-1.0); BUN/CREATININE RATIO 16; CALCIUM 9.7 MG/DL (8.5-10.1); CARBON DIOXIDE 24 MMOL/L (21-32); CHLORIDE 103 MMOL/L (98-107); CREATININE SERUM 0.81 MG/DL (0.60-1.30); GFR ESTIMATED 103; GLUCOSE 92 MG/DL (70-105); POTASSIUM 4.3 MMOL/L (3.6-5.0); SODIUM 140 MMOL/L (135-145)
[2022-08-03 18:35] LABS: ALBUMIN 4.1 GM/DL (3.2-4.5); TOTAL PROTEIN 6.8 GM/DL (6.4-8.2)
[2022-08-03 18:45] LABS: LYMPHOCYTES % (MANUAL) 5 %; MONOCYTES % (MANUAL) 4 %; NEUTROPHILS % (MANUAL) 91 %
[2022-08-03] MEDS ORDERED: FUROSEMIDE 40 MG/4 ML INJ (LASIX) ONE (18:52)
[2022-08-03] MEDS ORDERED: FUROSEMIDE 40 MG/4 ML INJ (LASIX) IVP ONE (19:00)
[2022-08-03 20:45] VITALS: BP 130/99
[2022-08-03] MEDS ORDERED: ALPRAZolam 0.5 MG (XANAX) TAB PO PRN (21:30)
[2022-08-03] MEDS ORDERED: BISACODYL 10 MG SUPP (DULCOLAX) PR PRN (21:30)
[2022-08-03] MEDS ORDERED: diphenhydrAMINE 25 MG TAB (BENADRYL) PO PRN (21:30)
[2022-08-03] MEDS ORDERED: ANTACID SUSP 30 ML UDC (MYLANTA) PO PRN (21:30)
[2022-08-03] MEDS ORDERED: morphine INJ 4 MG/ML 1 ML (VIAL/SYRINGE) IV PRN (21:30)
[2022-08-03] MEDS ORDERED: ONDANSETRON 4 MG/2 ML (SDV) Z0FRAN IV PRN (21:30)
[2022-08-03] MEDS ORDERED: cloNIDine 0.1 MG (CATAPRES) TAB PO PRN (21:30)
[2022-08-03] MEDS ORDERED: diphenhydrAMINE 50 MG/ML INJ (BENADRYL) IVP PRN (21:30)
[2022-08-03] MEDS ORDERED: ACETAMINOPHEN 325 MG TABLET PO PRN (21:30)
[2022-08-03] MEDS ORDERED: polyethylene glycoL POWDER 17 GM (MIRALAX) PACK PO PRN (21:30)
[2022-08-03] MEDS ORDERED: MELATONIN 3 MG TABLET PO PRN (21:30)
[2022-08-03] MEDS ORDERED: ONDANSETRON 4 MG (ZOFRAN) ORAL DISSOLVE TAB PO PRN (21:30)
[2022-08-03 22:45] VITALS: BP 150/92
[2022-08-03] MEDS ORDERED: RT-ALBUTEROL/IPRATROPIUM 3 ML (DUONEB) VIAL INH PRN (23:15)
[2022-08-03] MEDS: ENOXAPARIN 40 MG/0.4 ML (LOVENOX) SYR SC SCH (23:50)
[2022-08-04] VITALS (7 sets, daily range): BP systolic 106–125; BP diastolic 71–98
[2022-08-04] MEDS: RT-ALBUTEROL/IPRATROPIUM 3 ML (DUONEB) VIAL INH SCH ×4 (02:28→21:34)
[2022-08-04 04:21] LABS: BASOPHILS # (AUTO) 0.1 10^3/uL (0.0-0.1); BASOPHILS % (AUTO) 0 % (0-10); EOSINOPHILS % (AUTO) 0 % (0-10); HEMATOCRIT 40 % (40-54); HEMOGLOBIN 13.2 g/dL (13.3-17.7); LYMPHOCYTES # (AUTO) 1.1 10^3/uL (1.0-4.0); LYMPHOCYTES % (AUTO) 7 % (12-44); MEAN CORPUSCULAR HEMOGLOBIN 29 pg (25-34); MEAN CORPUSCULAR HGB CONC 33 g/dL (32-36); MEAN CORPUSCULAR VOLUME 88 fL (80-99); MEAN PLATELET VOLUME 11.4 fL (9.0-12.2); MONOCYTES # (AUTO) 1.7 10^3/uL (0.0-1.0); MONOCYTES % (AUTO) 10 % (0-12); NEUTROPHILS # (AUTO) 13.1 10^3/uL (1.8-7.8); NEUTROPHILS % (AUTO) 82 % (42-75); PLATELET COUNT 199 10^3/uL (130-400)
[2022-08-04 04:40] LABS: ALBUMIN 3.5 GM/DL (3.2-4.5)
[2022-08-04 04:41] LABS: POTASSIUM 3.8 MMOL/L (3.6-5.0)
[2022-08-04 04:42] LABS: CALCIUM 9.2 MG/DL (8.5-10.1)
[2022-08-04 04:43] LABS: TOTAL PROTEIN 5.8 GM/DL (6.4-8.2)
[2022-08-04 04:45] LABS: BILIRUBIN,TOTAL 2.2 MG/DL (0.1-1.0)
[2022-08-04 04:47] LABS: CREATININE SERUM 0.83 MG/DL (0.60-1.30)
[2022-08-04] MEDS ORDERED: FUROSEMIDE 40 MG/4 ML INJ (LASIX) IVP SCH (07:00)
--- NOTE | 2022-08-04 08:01 | History & Physical-Hospitalist ---
History of Present Illness HPI/Chief Complaint Chief complaint: Shortness of breath HPI: This is a 56-year-old male with a history of hypertension and tobacco chewing who presented to [facility] with shortness of breath. Patient was assessed to have new onset congestive heart failure. IV Lasix was ordered and cardiology consultation with Dr. Hairston ensued. Patient was transported and admitted to cardiac stepdown unit. Patient feels much better. Less short of breath but still in overload. Good urinary output after IV Lasix. Oxygen remains good. Echo shows ejection fraction 25% so new onset cardiomyopathy will require cardiac catheterization. Source: patient, RN/MD, old records Date Seen 08/04/22 Time Seen by a Provider: 11:00 Attending Physician [place] PCP Admitting Physician: Tatianna Costa DO Attending Physician: Tatianna Costa DO Referring Physician Date of Admission Aug 03, 2022 at 20:37 Home Medications & Allergies Home Medications Reviewed patient Home Medication Reconciliation performed by pharmacy medication reconciliations surface lay out technician and/or nursing. Patients Allergies have been reviewed. Allergies Allergies Coded Allergies No Known Drug Allergies (Unverified12/18/21) Past Phgqzrn-Htpmgw-Uqpner Hx Patient Social History Marrital Status: single Employed/Student: retired Tobacco Use?: Yes Smokeless type used: Chew Smokeless Tobacco Frequency: Current Everyday User Use of E-Cig and/or Vaping dev: No Substance use?: No Alcohol Use?: Yes Alcohol type: Beer Alcohol Frequency: Once in a while Pt feels they are or have been: No Immunizations Up To Date First/Initial COVID19 Vaccinat: Not currently vaccinated Second COVID19 Vaccination Nitesh: Not currently vaccinated Current Status Advance Directives: No Communicates: Verbally Primary Language: Uzbek Preferred Spoken Language: Uzbek Is interpretation needed?: No Past Medical History Surgeries: CABG High Cholesterol Review of Systems Constitutional: see HPI Respiratory: dyspnea on exertion, short of breath Cardiovascular: edema Physical Exam Physical Exam Vital Signs Vital Signs - First Documented 08/03/22 08/03/22 08/03/22 17:40 19:46 22:45 Temp 36.7 Pulse 105 Resp 30 B/P (MAP) 150/92 (111) Pulse Ox 95 O2 Delivery Room Air O2 Flow Rate 2.00 FiO2 21 Capillary Refill : Less Than 3 Seconds Height, Weight, BMI Height: '" Weight: lbs. oz. kg; 26.79 BMI Method: General Appearance: Anxious, Chronically ill, Mild Distress Eyes: Right Eye Normal Inspection, Right Eye PERRL HEENT: PERRL/EOMI, Normal ENT Inspection, Pharynx Normal, Moist Mucous Membranes Neck: Full Range of Motion, Normal Inspection, Non Tender Respiratory: Chest Non Tender, No Respiratory Distress, Accessory Muscle Use, Decreased Breath Sounds, Wheezing Cardiovascular: Regular Rate, Rhythm, No Edema, No Gallop, No JVD, No Murmur, Normal Peripheral Pulses Gastrointestinal: Normal Bowel Sounds, No Organomegaly, No Pulsatile Mass, Non Tender, Soft Back: Normal Inspection, No CVA Tenderness, No Vertebral Tenderness Extremity: Normal Capillary Refill, Normal Inspection, Normal Range of Motion, Non Tender, No Calf Tenderness, No Pedal Edema Neurologic/Psychiatric: Alert, Oriented x3, No Motor/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, Normal Mood/Affect Skin: Normal Color, Warm/Dry Lymphatic: No Adenopathy Results Results/Procedures Labs Laboratory Tests 08/03/22 17:52 08/04/22 03:39 Patient resulted labs reviewed. Assessment/Plan Admission Diagnosis Assessment: New onset congestive heart failure New cardiomyopathy ejection fraction 25% Hypertension Oral tobacco user Leukocytosis Plan: IV Lasix Cardiology consultation appreciated Cardiac stepdown Needs cardiac cath Admission Status: Inpatient Order (span 2 midnights) Reason for Inpatient Admission: CHF ejection fraction 25% Diagnosis/Problems Diagnosis/Problems (1) Acute heart failure with reduced ejection fraction and diastolic dysfunction (2) Cardiomyopathy Status: Acute (3) Primary hypertension Status: Chronic (4) Mitral regurgitation Status: Chronic (5) Pulmonary hypertension Status: Acute (6) Mixed hyperlipidemia Status: Chronic (7) Coronary artery disease with unstable angina pectoris Status: Acute TATIANNA COSTA DO Aug 04, 2022 08:01
[2022-08-04] MEDS: DOCUSATE SODIUM 100 MG (COLACE) CAP PO SCH ×2 (08:12→20:42)
--- NOTE | 2022-08-04 09:27 | Physical Therapy Evaluation ---
PT Evaluation-General Medical Diagnosis Admission Date Aug 03, 2022 at 20:37 Medical Diagnosis: CHF Onset Date: Aug 03, 2022 Therapy Diagnosis Therapy Diagnosis: Weakness/Debility Precautions Precautions/Isolations: Standard Precautions Weight Bear Status Weight Bearing/Tolerated Weight Bearing/Tolerated Referral Physician: Igor Reason for Referral: Evaluation/Treatment Medical History Additional Medical History CHF Current History ED secondary to SOB and LE swelling Reviewed History: Yes Social History Home: Single Level Current Living Status: Alone PT Steps Into Home: 2 Prior Prior Level of Function SCALE: Activities may be completed with or without assistive devices. 7-Cjmpozfhbi-fmjeqpz completes the activity by him/herself with no assistance from a helper. 5-Set-up or Clean-up Assistance-helper sets up or cleans up; patient completes activity. [place] assists only prior to or following the activity. 4-Supervision or Touching Assistance-helper provides verbal cues and/or touching/steadying and/or contact guard assistance as patient completes activity. Assistance may be provided throughout the activity or intermittently. 3-Partial/Moderate Assistance-helper does LESS THAN HALF the effort. [place] lifts, holds or supports trunk or limbs, but provides less than half the effort. 2-Substantial/Maximal Assistance-helper does MORE THAN HALF the effort. [place] lifts or holds trunk or limbs and provides more than half the effort. 5-Eqnmzxzvn-xkbupf does ALL the effort. Patient does none of the effort to complete the activity. Or, the assistance of 2 or more helpers is required for the patient to complete the activity. If activity was not attempted, code reason: 7-Patient Refused. 9-Not Applicable-not attempted and the patient did not perform the activity before the current illness, exacerbation or injury. 10-Not Attempted due to Environmental Limitations-(lack of equipment, weather restraints, etc.). 88-Not Attempted due to Medical Conditions or Safety Concerns. Bed Mobility: 6 Transfers (B,C,W/C): 6 Gait: 6 Stairs: 6 Wheelchair Mobility: 9 Indoor Mobility (Ambulation): Independent Stairs: Independent Prior Devices Use: None PT Evaluation-Current Subjective Pt sitting at EOB upon arrival to room, agreeable to PT treatment. Pt denies any pain at this time. Pt/Family Goals return home Objective Patient Orientation: Person, Place, Situation Attachments: Oxygen (2L) ROM/Strength ROM Lower Extremities WFL Strength Lower Extremities grossly 4/5 all LE Integumentary/Posture Integumentary refer to nursing notes Bowel Incontinence: No Bladder Incontinence: No Posture upright posture, slight decrease spinal curvatures. Neuromuscular (Tone, Coordination, Reflexes) intact Sensory Vision: Functional Hearing: Functional Sensation Right Lower Extremit: Intact Sensation Left Lower Extremity: Intact Transfers Sit to Stand (QC): 6 Gait Mode of Locomotion: Walk Anticipated Mode of Locomotion: Walk Walk 10 feet (QC): 4 Walk 50 ft with 2 Turns(QC): 4 Walk 150 ft (QC): 4 Distance: 300' Gait Assistive Device: None Comments/Gait Description SBA for safety, and management of lines Balance Special Test Comments Pt had good balance, able to don pants in standing position, holding SL stance >3s B Assessment/Needs Pt is a 56 year old male who presents with SOB upon exertion. He has good balance and ambulation distance; however, is SOB following activity more than his baseline. Pt would benefit from short duration of skilled PT to build activity tolerance and return to OF prior to DC from hospital. Rehab Potential: Good PT Fdc Goals Fdc Goals PT Wine Specialist Goals Time Frame: Aug 18, 2022 Sit to Stand (QC): 6 Walk 10 feet (QC): 6 Walk 50ft with 2 Turns (QC): 6 Walk 150 ft (QC): 6 12 Steps (QC): 6 PT Plan Problem List Problem List: Activity Tolerance, Functional Strength, Safety, Balance, Gait, Transfer, Bed Mobility, ROM Treatment/Plan Treatment Plan: Continue Plan of Care Treatment Plan: Bed Mobility, Education, Functional Activity Trina, Functional Strength, Gait, Safety, Therapeutic Exercise, Transfers Treatment Duration: Aug 18, 2022 Frequency: 6 times per week Estimated Hrs Per Day: .25 hour per day Patient and/or Family Agrees t: Yes Time Time In: 843 Time Out: 856 Total Billed Treatment 1 visit BERT (13') ANGELINA GAGNON PT Aug 04, 2022 09:27
--- NOTE | 2022-08-04 10:52 | Consultation-Cardiology ---
HPI-Cardiology Cardiology Consultation: Date of Consultation 08/04/22 Date of Admission 08/04/22 Attending Physician [facility] Admitting Physician Admitting Physician: Tatianna Costa DO Attending Physician: Tatianna Costa DO Consulting Physician RHONDA SOLITARIO JR, MD HPI: Time Seen by a Provider: 10:49 Chief Complaint: REASON FOR CONSULTATION: Heart failure. I had the pleasure of seeing Danilo on the cardiac stepdown unit at [facility] in [place], [place] this morning. He was previously following with one of my partners, Dr. Rose. However, at one point he lost his insurance and has not been seen by a drapery hemmer automatic in the past 3 years. He has a history of coronary artery disease with coronary artery bypass surgery x3 somewhere around 2004, hypertension, and hyperlipidemia. For the past few weeks he has been having increasing peripheral edema and also some dyspnea on exertion. He saw his primary provider who had him take a diuretic for 1 week and it sounds like he was also given a steroid taper. He took the medication and after 1 week, his peripheral edema resolved. However, the peripheral edema gradually reaccumulated over about the past week. He has had increasing dyspnea on exertion and some orthopnea. Yesterday he went to the emergency room at [facility] due to the peripheral edema and worsening shortness of breath. He was felt to be in heart failure and was given 1 dose of intravenous furosemide and transferred to our cardiac stepdown unit for further treatment and evaluation. He denies any chest discomfort. He denies any paroxysmal nocturnal dyspnea. He normally sleeps on 1 pillow but has started to prop up his bed due to some orthopnea. He denies palpitations but from time to time when he checks his blood pressure, his machine tells him there is an irregular heartbeat. He denies lightheadedness or syncope. He has had a slight cough productive of whitish sputum but denies fever or chills. He chews tobacco but does not smoke cigarettes. He does not know much about his parents other than his father recently of lung cancer. Because of the heart failure, a cardiology consultation was requested. Certain portions of this document may have been dictated utilizing voice recognition technology. Inherent to this technology, typographical and grammatical errors may exist. As much as I am diligent to identify and correct these mistakes, some errors may remain in the document. Review of Systems-Cardiology Review of Systems Other comments Review of 10 organ systems is as per the history of present illness, otherwise negative. JQU-Zceqwk-Kzmzpq Hx Patient Social History Smoking Status: Unknown if Ever Smoked Have you traveled recently?: No Alcohol Use?: Yes Pt feels they are or have been: No Past Medical History PMH As described under Assessment. Family Medical History Family Medical History: He does not know much about his family history. He grew up in foster care. Allergies and Home Medications Allergies Coded Allergies: No Known Drug Allergies (Unverified , 12/18/21) Patient Home Medication List Home Medication List Reviewed: Yes Exam Vital Signs Vital Signs Date Time Temp Pulse Resp B/P (MAP) Pulse Ox O2 Delivery O2 Flow Rate FiO2 08/04/22 10:10 95 Nasal Cannula 2.00 08/04/22 08:00 37.8 58 20 125/98 (107) 08/03/22 22:45 21 Physical Exam General: Alert. No acute distress. Well nourished and appears stated age. Eye: Extraocular movements are intact. Conjunctivae are clear. There are no xa nthelasma. HENT: Normocephalic. Atraumatic. Carotid pulsations 2/2 without bruits. Neck: Jugular venous pressure does not appear elevated. No thyromegaly appreciated. Respiratory: Lungs have diffuse scattered wheezes bilaterally. Respirations are non-labored. Breath sounds are equal. Symmetrical chest wall expansion. Cardiovascular: Normal rate. Regular rhythm. Distant S1/S2. No murmur. No gallop. Point of maximal impulse is not appear displaced. Good pulses equal in all extremities. 2+ bilateral pretibial edema without venous stasis changes. Gastrointestinal: Soft. Normal bowel sounds. Skin: Skin turgor is normal. There is no pallor. Musculoskeletal: No kyphosis or scoliosis appreciated. Neurologic: Alert and oriented to person, place, time. Cranial nerves 3-12 appear grossly intact. The patient has good motor tone strength in the upper and lower extremities bilaterally. Psychiatric: Cooperative. Appropriate mood & affect. Labs Laboratory Tests Test 08/03/22 17:52 08/03/22 21:46 08/04/22 03:39 Range/Units White Blood Count 14.8 H 16.0 H 4.3-11.0 10^3/uL Red Blood Count 5.17 4.58 4.30-5.52 10^6/uL Hemoglobin 14.9 13.2 L 13.3-17.7 g/dL Hematocrit 46 40 40-54 % Mean Corpuscular Volume 90 88 80-99 fL Mean Corpuscular Hemoglobin 29 29 25-34 pg Mean Corpuscular Hemoglobin Concent 32 33 32-36 g/dL Red Cell Distribution Width 15.1 H 14.7 H 10.0-14.5 % Platelet Count 236 199 130-400 10^3/uL Mean Platelet Volume 11.3 11.4 9.0-12.2 fL Immature Granulocyte % (Auto) 0 1 % Neutrophils (%) (Auto) 80 H 82 H 42-75 % Lymphocytes (%) (Auto) 10 L 7 L 12-44 % Monocytes (%) (Auto) 10 10 0-12 % Eosinophils (%) (Auto) 0 0 0-10 % Basophils (%) (Auto) 1 0 0-10 % Neutrophils # (Auto) 11.8 H 13.1 H 1.8-7.8 10^3/uL Lymphocytes # (Auto) 1.4 1.1 1.0-4.0 10^3/uL Monocytes # (Auto) 1.4 H 1.7 H 0.0-1.0 10^3/uL Eosinophils # (Auto) 0.0 0.0 0.0-0.3 10^3/uL Basophils # (Auto) 0.1 0.1 0.0-0.1 10^3/uL Immature Granulocyte # (Auto) 0.1 0.1 0.0-0.1 10^3/uL Neutrophils % (Manual) 91 % Lymphocytes % (Manual) 5 % Monocytes % (Manual) 4 % Prothrombin Time 14.8 H 12.2-14.7 SEC INR Comment 1.1 0.8-1.4 Activated Partial Thromboplast Time 32 24-35 SEC Sodium Level 140 140 135-145 MMOL/L Potassium Level 4.3 3.8 3.6-5.0 MMOL/L Chloride Level 103 105 98-107 MMOL/L Carbon Dioxide Level 24 23 21-32 MMOL/L Anion Gap 13 12 5-14 MMOL/L Blood Urea Nitrogen 13 14 7-18 MG/DL Creatinine 0.81 0.83 0.60-1.30 MG/DL Estimat Glomerular Filtration Rate 103 103 BUN/Creatinine Ratio 16 17 Glucose Level 92 99 70-105 MG/DL Calcium Level 9.7 9.2 8.5-10.1 MG/DL Corrected Calcium 9.6 9.6 8.5-10.1 MG/DL Magnesium Level 1.9 1.6-2.4 MG/DL Total Bilirubin 1.9 H 2.2 H 0.1-1.0 MG/DL Aspartate Amino Transf (AST/SGOT) 27 24 5-34 U/L Alanine Aminotransferase (ALT/SGPT) 17 16 0-55 U/L Alkaline Phosphatase 186 H 131 40-136 U/L Troponin I < 0.30 <0.30 NG/ML Pro-B-Type Natriuretic Peptide 4956.0 H <125.0 PG/ML Total Protein 6.8 5.8 L 6.4-8.2 GM/DL Albumin 4.1 3.5 3.2-4.5 GM/DL Influenza Type A (RT-PCR) Not Detected Not Detecte Influenza Type B (RT-PCR) Not Detected Not Detecte SARS-CoV-2 RNA (RT-PCR) Not Detected Not Detecte Radiology ECHOCARDIOGRAM (08/04/2020): 1. This is a technically difficult study due to poor image quality secondary to poor acoustic windows. Intravenous contrast was administered to enhance image quality. 2. Left ventricle: The left ventricle is severely dilated. There is mild concentric hypertrophy. Systolic function is severely reduced. The estimated ejection fraction is 15-20%. Severe diffuse hypokinesis. Features are consistent with a pseudonormal left ventricular filling pattern, with concomitant abnormal relaxation and increased filling pressure (grade 2 diastolic dysfunction). 3. Right ventricle: The right ventricle is mildly dilated with a diameter of 3.7 cm at the base. Systolic function is moderately reduced. TAPSE 1 cm. 4. Left atrium: The left atrium is mildly dilated with a volume index of 39 mL/m. 5. Right atrium: The right atrium is severely dilated with an area of 31 cm. 6. Aortic valve: There is trivial aortic regurgitation. 7. Mitral valve: There is mild mitral regurgitation. 8. Tricuspid valve: There is severe tricuspid regurgitation. 9. Inferior vena cava: The vessel is dilated. The respirophasic diameter changes are in the normal range (greater than or equal to 50%). These findings are consistent with mildly elevated right atrial pressure (8 mmHg). 10. Pulmonary arteries: The estimated pulmonary artery systolic pressure is 55 mmHg assuming a right atrial pressure of 8 mmHg. ECG Impression ECG Comment Electrocardiogram from the [facility] emergency room on 08/03 shows baseline artifact with sinus rhythm, probable old anterior wall myocardial infarction and nonspecific ST-T wave changes in the anterolateral leads. Diagnosis/Problems Diagnosis/Problems (1) Acute heart failure with reduced ejection fraction and diastolic dysfunction Assessment & Plan: He tells me that Dr. Rose once told him that he could be headed towards having heart failure but does not recall ever being told he had heart failure in the past. He has severe left ventricular systolic dysfunction and grade 2 diastolic dysfunction as noted on his echocardiogram above. I do not have any old echocardiograms for comparison. He has been receiving intravenous furosemide. I will increase the dose to 80 mg IV twice daily. I wi ll start him back on metoprolol succinate and change his lisinopril over to low- dose Entresto. Once we get his volume overload under control, he will likely need further evaluation with a cardiac catheterization. I will tentatively see if we can schedule this for Saturday. I also ordered a follow-up chest x-ray for the morning. (2) Coronary artery disease with unstable angina pectoris Status: Acute Assessment & Plan: Some of his symptoms could also be consistent with unstable angina. He has nonspecific findings on his electrocardiogram. His troponin level in the outside emergency room was undetectable. I have added a follow-up troponin level to this morning's labs. I will restart aspirin, beta-librado, and atorvastatin. (3) Cardiomyopathy Status: Acute Assessment & Plan: He has severe left ventricular systolic dysfunction as noted on his echocardiogram today. I suspect this may be ischemic. I will start him on metoprolol succinate and Entresto as outlined above. We will titrate these medications and consider adding an aldosterone antagonist as tolerated by his blood pressure and renal function. We may also need to consider prescribing a LifeVest prior to discharge. (4) Pulmonary hypertension Status: Acute Assessment & Plan: He has moderate to severe pulmonary hypertension. I suspect some of this is acute due to the acute heart failure. This will need to be followed longitudinally. (5) Mitral regurgitation Status: Chronic Assessment & Plan: He has mild mitral regurgitation. Unclear whether or not he may have had mitral valve repair at the time of his coronary bypass surgery. (6) Primary hypertension Status: Chronic Assessment & Plan: As above, I will resume metoprolol and change lisinopril over to Entresto. Although Entresto is not indicated for hypertension, it has significant antihypertensive effects. (7) Mixed hyperlipidemia Status: Chronic Assessment & Plan: I will intensify his dose of statin medication in light of the possible acute coronary syndrome. (8) Chewing tobacco nicotine dependence Status: Chronic Assessment & Plan: He needs to work on tobacco cessation. He was counseled in this regard. RHONDA SOLITARIO JR, MD Aug 04, 2022 10:52
[2022-08-04] MEDS ORDERED: SACUBITRIL/VALSARTAN 24/26 MG (ENTRESTO) TABLET PO ONE (11:00)
[2022-08-04] MEDS ORDERED: ASPIRIN E.C. 81 MG (ECOTRIN) TAB PO ONE (11:00)
--- NOTE | 2022-08-04 11:27 | Occupational Therapy Eval ---
OT Evaluation-General/PLF Medical Diagnosis Admission Date Aug 03, 2022 at 20:37 Medical Diagnosis: CHF Onset Date: Aug 03, 2022 Therapy Diagnosis Therapy Diagnosis: decr activity tolerance, decr functional mobility Precautions Precautions/Isolations: Standard Precautions Referral Physician: Igor Mascorro Reason: Evaluation/Treatment Medical History Pertinent Medical History: CABG, [place], Smoking (chew) Additional Medical History Heart palpitations. Hx LE edema Current History Admitted with LE swelling, abdominal edema. Increased SOB Reviewed History: Yes Social History Home: Single Level Current Living Status: Alone Steps Into Home: 2 ADL-Prior Level of Function SCALE: Activities may be completed with or without assistive devices. 5-Nsqckozxsz-yfcelll completes the activity by him/herself with no assistance from a helper. 5-Set-up or Clean-up Assistance-helper sets up or cleans up; patient completes activity. Edwards assists only prior to or following the activity. 4-Supervision or Touching Assistance-helper provides verbal cues and/or touching/steadying and/or contact guard assistance as patient completes activity. Assistance may be provided throughout the activity or intermittently. 3-Partial/Moderate Assistance-helper does LESS THAN HALF the effort. Edwards lifts, holds or supports trunk or limbs, but provides less than half the effort. 2-Substantial/Maximal Assistance-helper does MORE THAN HALF the effort. Edwards lifts or holds trunk or limbs and provides more than half the effort. 1-Vilombyzf-zaayao does ALL the effort. Patient does none of the effort to complete the activity. Or, the assistance of 2 or more helpers is required for the patient to complete the activity. If activity was not attempted, code reason: 7-Patient Refused. 9-Not Applicable-not attempted and the patient did not perform the activity before the current illness, exacerbation or injury. 10-Not Attempted due to Environmental Limitations-(lack of equipment, weather restraints, etc.). 88-Not Attempted due to Medical Conditions or Safety Concerns. ADL PLOF Comments Pt reported that he has been able to take care of himself and his home, including mowing and trimming trees. He just gets SOB and needs more time when edema gets bad. 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 He is able to drive without difficulty. Self Care: Independent Functional Cognition: Independent Drive Self: Yes OT Current Status Subjective Pt seen in room in bed, easily awakened. No pain reported. Appearance Alert, cooperative Mental Status/Objective Patient Orientation: Person, Place, Situation Attachments: IV, Telemetry Current Upper Extremity ROM Grossly WFL bilat Upper Extremity Sensation No problems reported Upper Extremity Strength Grossly 4/5 bilat Edema: Pt reported that he usually doesn't have UE edema ADL-Treatment ADL-Current Pt reported that he has been cleared by nursing to take himself to the bathroom. He had no problem donning pants during PT eval. No current ADL problems except from SOB and decreased activity tolerance Education OT Patient Education: Purpose of tx/functional activities, Rehab process Teaching Recipient: Patient Teaching Methods: Discussion Response to Teaching: Verbalize Understanding OT Retirement Goals Retirement Goals Time Frame: Aug 07, 2022 Pt will verbalize three energy conservation techniques to use when needed 1=Demonstrate adherence to instructed precautions during ADL tasks. 2=Patient will verbalize/demonstrate understanding of assistive devices/modifications for ADL. 3=Patient will improve strength/tolerance for activity to enable patient to perform ADL's. OT Education/Plan Problem List/Assessment Assessment: Decreased Activ Tolerance Impaired functional mobility Discharge Recommendations Plan Pt would benefit from skilled OT to learn energy conservation techniques to use when they are needed. Plan/Recommendations: Continue POC Treatment Plan/Plan of Care Treatment,Training & Education: Yes Patient would benefit from OT for education, treatment and training to promote independence in ADL's, mobility, safety and/or upper extremity function for ADL's. Plan of Care: OTHER (Energy conservation education) Treatment Duration: Aug 07, 2022 Frequency: 2 times per week Estimated Hrs Per Day: .25 hour per day Agreement: Yes Rehab Potential: Good Time/GCodes Start Time: 11:02 Stop Time: 11:17 Total Time Billed (hr/min): 15 Billed Treatment Time visit, evaluation low intensity 15 minutes DADA AZUL OT Aug 04, 2022 11:27
[2022-08-04] MEDS: FUROSEMIDE 40 MG/4 ML INJ (LASIX) IVP SCH (16:48)
[2022-08-04] MEDS: ENOXAPARIN 40 MG/0.4 ML (LOVENOX) SYR SC SCH (20:41)
[2022-08-04] MEDS: SACUBITRIL/VALSARTAN 24/26 MG (ENTRESTO) TABLET PO SCH (20:42)
[2022-08-04] MEDS ORDERED: AtorvaSTATin TABLET 10 MG TABLET PO SCH (21:00)
[2022-08-05] VITALS: BP 94/70
[2022-08-05] MEDS: RT-ALBUTEROL/IPRATROPIUM 3 ML (DUONEB) VIAL INH SCH ×4 (03:01→21:24)
[2022-08-05 04:00] VITALS: BP 99/73
[2022-08-05 05:52] LABS: ALBUMIN 3.2 GM/DL (3.2-4.5); BILIRUBIN,TOTAL 2.2 MG/DL (0.1-1.0); CALCIUM 8.9 MG/DL (8.5-10.1); CREATININE SERUM 0.7 MG/DL (0.60-1.30); POTASSIUM 3.1 MMOL/L (3.6-5.0); TOTAL PROTEIN 5.4 GM/DL (6.4-8.2)
--- NOTE | 2022-08-05 06:12 | Progress Note - Hospitalist ---
Subjective HPI/CC On Admission Date Seen by Provider: Aug 05, 2022 Time Seen by Provider: 11:30 Chief complaint: Shortness of breath HPI: This is a 56-year-old male with a history of hypertension and tobacco chewing who presented to [facility] with shortness of breath. Patient was assessed to have new onset congestive heart failure. IV Lasix was ordered and cardiology consultation with Dr. Hairston ensued. Patient was transported and admitted to cardiac stepdown unit. Patient feels much better. Less short of b reath but still in overload. Good urinary output after IV Lasix. Oxygen remains good. Echo shows ejection fraction 25% so new onset cardiomyopathy will require cardiac catheterization. Subjective/Events-last exam Patient doing well Minimal chest pain Lasix very effective for diuresis Cardiac cath tomorrow by Dr. Rose Review of Systems General: Fatigue, Malaise Pulmonary: Dyspnea Cardiovascular: Chest Pain Objective Exam Vital Signs Vital Signs Date Time Temp Pulse Resp B/P (MAP) Pulse Ox O2 Delivery O2 Flow Rate FiO2 08/05/22 12:37 89 08/05/22 12:00 37.0 13 115/93 (100) 95 Nasal Cannula 2.00 08/03/22 22:45 21 Capillary Refill : Less Than 3 Seconds General Appearance: No Apparent Distress, WD/WN, Chronically ill Respiratory: Decreased Breath Sounds, Wheezing Cardiovascular: Regular Rate, Rhythm Neurologic/Psychiatric: Alert, Oriented x3 Results/Procedures Lab Laboratory Tests 08/05/22 04:50 Patient resulted labs reviewed. Assessment/Plan Assessment and Plan Assess & Plan/Chief Complaint Assessment: New onset congestive heart failure New cardiomyopathy ejection fraction 25% CAD prev intervention Hypertension Oral tobacco user Leukocytosis Hypokalemia Plan: IV Lasix Cardiology consultation appreciated Cardiac stepdown Needs cardiac cath Replace potassium Diagnosis/Problems Diagnosis/Problems (1) Acute heart failure with reduced ejection fraction and diastolic dysfunction (2) Cardiomyopathy Status: Acute (3) Primary hypertension Status: Chronic (4) Mitral regurgitation Status: Chronic (5) Pulmonary hypertension Status: Acute (6) Mixed hyperlipidemia Status: Chronic (7) Coronary artery disease with unstable angina pectoris Status: Acute RENITA PHILLIPS DO Aug 05, 2022 06:12
[2022-08-05 06:15] LABS: BASOPHILS % (AUTO) 0 % (0-10); EOSINOPHILS # (AUTO) 0.1 10^3/uL (0.0-0.3); EOSINOPHILS % (AUTO) 1 % (0-10); HEMATOCRIT 38 % (40-54); HEMOGLOBIN 12.4 g/dL (13.3-17.7); LYMPHOCYTES # (AUTO) 0.9 10^3/uL (1.0-4.0); LYMPHOCYTES % (AUTO) 9 % (12-44); MEAN CORPUSCULAR HEMOGLOBIN 29 pg (25-34); MEAN CORPUSCULAR HGB CONC 33 g/dL (32-36); MEAN CORPUSCULAR VOLUME 88 fL (80-99); MEAN PLATELET VOLUME 11.3 fL (9.0-12.2); MONOCYTES # (AUTO) 1.2 10^3/uL (0.0-1.0); MONOCYTES % (AUTO) 12 % (0-12); NEUTROPHILS # (AUTO) 7.8 10^3/uL (1.8-7.8); NEUTROPHILS % (AUTO) 78 % (42-75); PLATELET COUNT 164 10^3/uL (130-400)
[2022-08-05 07:41] VITALS: BP 103/76
[2022-08-05] MEDS: ASPIRIN E.C. 81 MG (ECOTRIN) TAB PO SCH (08:04)
[2022-08-05] MEDS: KCL 20 MEQ TAB (K-DUR) PO SCH ×4 (08:04→20:00)
[2022-08-05] MEDS: MAGNESIUM OXIDE (MAG-OX)400 MG TAB PO SCH ×2 (08:04→18:13)
[2022-08-05] MEDS: SACUBITRIL/VALSARTAN 24/26 MG (ENTRESTO) TABLET PO SCH ×2 (08:05→20:00)
[2022-08-05] MEDS: FUROSEMIDE 40 MG/4 ML INJ (LASIX) IVP SCH ×2 (08:05→18:14)
[2022-08-05] MEDS: DOCUSATE SODIUM 100 MG (COLACE) CAP PO SCH ×2 (08:07→19:58)
--- NOTE | 2022-08-05 10:39 | Diagnostic Imaging Report ---
INDICATION: Congestive heart failure COMPARISON: 08/03/2022. TECHNIQUE: Two radiographs of the chest dated 08/05/2022. FINDINGS: Postsurgical changes of a median sternotomy. The cardiac silhouette is enlarged, though stable. Minimal central pulmonary vascular congestion, similar to the prior examination. Small left basilar pleural-parenchymal opacity is present, slightly increased since the prior examination. Previously noted tiny right pleural effusion is improved. The upper lungs are clear. No pneumothorax. No acute osseous abnormality. IMPRESSION: Small bibasilar pleural-parenchymal opacities, related to a combination of pleural fluid with adjacent atelectasis and/or infiltrate. This is slightly worsened within the left lung base though improved on the right. Persistent cardiomegaly with minimal central pulmonary vascular congestion. Dictated by: Dictated on workstation # [id number]
[2022-08-05] MEDS ORDERED: CATHETER FLUSH 10 ML SYR IV PRN (11:15)
--- NOTE | 2022-08-05 11:40 | Cardiology Progress Note ---
Progress Note-Cardiology Events since last exam Date Seen by Provider: Aug 05, 2022 Time Seen by Provider: 11:42 Events since last exam He remains on the cardiac stepdown unit. I am following him due to acute heart failure with reduced ejection fraction and diastolic dysfunction. His peripheral edema has improved but not completely resolved. His abdominal bloating and shortness of breath have also improved. He denies chest discomfort, palpitations, or syncope. Certain portions of this document may have been dictated utilizing voice recognition technology. Inherent to this technology, typographical and grammatical errors may exist. As much as I am diligent to identify and correct these mistakes, some errors may remain in the document. Vitals Last set of Vitals Signs Vital Signs 08/03/22 08/05/22 08/05/22 22:45 07:41 10:34 Temp 36.8 Pulse 82 Resp 18 B/P (MAP) 103/76 (85) Pulse Ox 95 O2 Delivery Nasal Cannula O2 Flow Rate 2.00 FiO2 21 Labs Labs Laboratory Tests 08/05/22 04:50 Exam Vital Signs Vital Signs Date Time Temp Pulse Resp B/P (MAP) Pulse Ox O2 Delivery O2 Flow Rate FiO2 08/05/22 10:34 95 Nasal Cannula 2.00 08/05/22 07:41 36.8 82 18 103/76 (85) 08/03/22 22:45 21 Physical Exam General: Alert. No acute distress. Eye: No xanthelasma. HENT: Normocephalic. Neck: Jugular venous pressure does not appear elevated. Respiratory: Lungs have diffuse wheezing, worse on the left. Respirations are non-labored. Breath sounds are equal. Symmetrical chest wall expansion. Cardiovascular: Normal rate. Regular rhythm. No murmur. No gallop. 1+ bilateral pretibial edema. Gastrointestinal: Soft. Normal bowel sounds. Skin: Warm. Dry. Neurologic: Alert and oriented to person, place, time. Cranial nerves 3-11 grossly intact. Psychiatric: Cooperative. Appropriate mood & affect. Labs Laboratory Tests Test 08/05/22 04:50 Range/Units White Blood Count 10.0 4.3-11.0 10^3/uL Red Blood Count 4.31 4.30-5.52 10^6/uL Hemoglobin 12.4 L 13.3-17.7 g/dL Hematocrit 38 L 40-54 % Mean Corpuscular Volume 88 80-99 fL Mean Corpuscular Hemoglobin 29 25-34 pg Mean Corpuscular Hemoglobin Concent 33 32-36 g/dL Red Cell Distribution Width 14.8 H 10.0-14.5 % Platelet Count 164 130-400 10^3/uL Mean Platelet Volume 11.3 9.0-12.2 fL Immature Granulocyte % (Auto) 0 % Neutrophils (%) (Auto) 78 H 42-75 % Lymphocytes (%) (Auto) 9 L 12-44 % Monocytes (%) (Auto) 12 0-12 % Eosinophils (%) (Auto) 1 0-10 % Basophils (%) (Auto) 0 0-10 % Neutrophils # (Auto) 7.8 1.8-7.8 10^3/uL Lymphocytes # (Auto) 0.9 L 1.0-4.0 10^3/uL Monocytes # (Auto) 1.2 H 0.0-1.0 10^3/uL Eosinophils # (Auto) 0.1 0.0-0.3 10^3/uL Basophils # (Auto) 0.0 0.0-0.1 10^3/uL Immature Granulocyte # (Auto) 0.0 0.0-0.1 10^3/uL Sodium Level 139 135-145 MMOL/L Potassium Level 3.1 L 3.6-5.0 MMOL/L Chloride Level 103 98-107 MMOL/L Carbon Dioxide Level 26 21-32 MMOL/L Anion Gap 10 5-14 MMOL/L Blood Urea Nitrogen 11 7-18 MG/DL Creatinine 0.70 0.60-1.30 MG/DL Estimat Glomerular Filtration Rate 108 BUN/Creatinine Ratio 16 Glucose Level 83 70-105 MG/DL Calcium Level 8.9 8.5-10.1 MG/DL Corrected Calcium 9.5 8.5-10.1 MG/DL Magnesium Level 1.7 1.6-2.4 MG/DL Total Bilirubin 2.2 H 0.1-1.0 MG/DL Aspartate Amino Transf (AST/SGOT) 20 5-34 U/L Alanine Aminotransferase (ALT/SGPT) 15 0-55 U/L Alkaline Phosphatase 127 40-136 U/L Total Protein 5.4 L 6.4-8.2 GM/DL Albumin 3.2 3.2-4.5 GM/DL Diagnosis/Problems Diagnosis/Problems (1) Acute heart failure with reduced ejection fraction and diastolic dysfunction Assessment & Plan: He has severe left ventricular systolic dysfunction and grade 2 diastolic dysfunction as noted on his echocardiogram above. I do not have any old echocardiograms for comparison. He has been receiving intravenous furosemide. I started him back on metoprolol succinate and changed his lisinopril over to low-dose Entresto on 08/04. Once we get his volume overload under control, he will likely need further evaluation with a cardiac catheterization. He is tentatively scheduled for a cardiac catheterization with Dr. Rose on 08/06/2022 at 09:00. (2) Troponin level elevated Assessment & Plan: He may have suffered a type II non-ST elevation myocardial infarction secondary to supply/demand mismatch from the acute heart failure. We will proceed with a cardiac catheterization as above. (3) Coronary artery disease with unstable angina pectoris Status: Acute Assessment & Plan: Some of his symptoms could also be consistent with unstable angina. He has nonspecific findings on his electrocardiogram. His troponin level in the outside emergency room was undetectable but borderline elevated here. I restarted aspirin, beta-librado, and atorvastatin on 08/06. (4) Cardiomyopathy Status: Acute Assessment & Plan: He has severe left ventricular systolic dysfunction as noted on his echocardiogram today. I suspect this may be ischemic. I started him on metoprolol succinate and Entresto as outlined above. We will titrate these medications and consider adding an aldosterone antagonist as tolerated by his blood pressure and renal function. We may also need to consider prescribing a LifeVest prior to discharge. I discussed this with the patient and he would not be opposed. (5) Pulmonary hypertension Status: Acute Assessment & Plan: He has moderate to severe pulmonary hypertension. I suspect some of this is acute due to the acute heart failure. This will need to be followed longitudinally. (6) Mitral regurgitation Status: Chronic Assessment & Plan: He has mild mitral regurgitation. He tells me he had a vladimir ral valve annuloplasty at the time of bypass surgery. (7) Primary hypertension Status: Chronic Assessment & Plan: As above, I resume metoprolol and change lisinopril over to Entresto. Although Entresto is not indicated for hypertension, it has significant antihypertensive effects. His blood pressures are running somewhat low at times and this may be related to the intravenous diuretic. (8) Mixed hyperlipidemia Status: Chronic Assessment & Plan: I intensified his dose of statin medication in light of the possible acute coronary syndrome. (9) Chewing tobacco nicotine dependence Status: Chronic Assessment & Plan: He needs to work on tobacco cessation. He was counseled in this regard. RHONDA SOLITARIO JR, MD Aug 05, 2022 11:40
[2022-08-05 12:00] VITALS: BP 115/93
[2022-08-05 16:00] VITALS: BP 122/82
[2022-08-05 20:00] VITALS: BP 109/76
[2022-08-05] MEDS: ENOXAPARIN 40 MG/0.4 ML (LOVENOX) SYR SC SCH (20:00)
[2022-08-06] VITALS (18 sets, daily range): BP systolic 91–118; BP diastolic 62–93
[2022-08-06] MEDS: RT-ALBUTEROL/IPRATROPIUM 3 ML (DUONEB) VIAL INH SCH ×4 (02:07→19:54)
--- NOTE | 2022-08-06 05:44 | Progress Note - Hospitalist ---
Subjective HPI/CC On Admission Date Seen by Provider: Aug 06, 2022 Time Seen by Provider: 09:00 Chief complaint: Shortness of breath HPI: This is a 56-year-old male with a history of hypertension and tobacco chewing who presented to [facility] with shortness of breath. Patient was assessed to have new onset congestive heart failure. IV Lasix was ordered and cardiology consultation with Dr. Hairston ensued. Patient was transported and admitted to cardiac stepdown unit. Patient feels much better. Less short of b reath but still in overload. Good urinary output after IV Lasix. Oxygen remains good. Echo shows ejection fraction 25% so new onset cardiomyopathy will require cardiac catheterization. Subjective/Events-last exam Pt is undergoing cardiac catheterization Spoke with Dr. Rose and showed small vessel disease Will get a life vest and discharge planned for tomorrow Reviewed meds sand labs Review of Systems General: Fatigue Pulmonary: Dyspnea Objective Exam Vital Signs Vital Signs Date Time Temp Pulse Resp B/P (MAP) Pulse Ox O2 Delivery O2 Flow Rate FiO2 08/07/22 04:00 97 36 131/101 (111) 92 Room Air 08/07/22 02:21 0.00 08/06/22 20:00 36.8 08/06/22 15:13 21 Capillary Refill : Less Than 3 Seconds General Appearance: No Apparent Distress, WD/WN, Chronically ill Respiratory: Lungs Clear, Normal Breath Sounds Cardiovascular: Regular Rate, Rhythm Neurologic/Psychiatric: Alert, Oriented x3, No Motor/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, Normal Mood/Affect Results/Procedures Lab Laboratory Tests 08/06/22 05:58 Patient resulted labs reviewed. Assessment/Plan Assessment and Plan Assess & Plan/Chief Complaint Assessment: New onset congestive heart failure New cardiomyopathy ejection fraction 25% CAD prev intervention Hypertension Oral tobacco user Leukocytosis Hypokalemia Plan: IV Lasix Cardiology consultation appreciated Cardiac stepdown Needs cardiac cath today Replace potassium Diagnosis/Problems Diagnosis/Problems (1) Acute heart failure with reduced ejection fraction and diastolic dysfunction (2) Cardiomyopathy Status: Acute (3) Primary hypertension Status: Chronic (4) Mitral regurgitation Status: Chronic (5) Pulmonary hypertension Status: Acute (6) Mixed hyperlipidemia Status: Chronic (7) Coronary artery disease with unstable angina pectoris Status: Acute RENITA PHILLIPS DO Aug 06, 2022 05:44
[2022-08-06] MEDS: FUROSEMIDE 40 MG/4 ML INJ (LASIX) IVP SCH ×2 (06:19→18:15)
[2022-08-06 06:23] LABS: BASOPHILS % (AUTO) 0 % (0-10); EOSINOPHILS # (AUTO) 0.1 10^3/uL (0.0-0.3); EOSINOPHILS % (AUTO) 2 % (0-10); HEMATOCRIT 40 % (40-54); HEMOGLOBIN 13.3 g/dL (13.3-17.7); LYMPHOCYTES # (AUTO) 1.1 10^3/uL (1.0-4.0); LYMPHOCYTES % (AUTO) 14 % (12-44); MEAN CORPUSCULAR HEMOGLOBIN 29 pg (25-34); MEAN CORPUSCULAR HGB CONC 33 g/dL (32-36); MEAN CORPUSCULAR VOLUME 88 fL (80-99); MEAN PLATELET VOLUME 10.9 fL (9.0-12.2); MONOCYTES # (AUTO) 1.1 10^3/uL (0.0-1.0); MONOCYTES % (AUTO) 15 % (0-12); NEUTROPHILS # (AUTO) 5.2 10^3/uL (1.8-7.8); NEUTROPHILS % (AUTO) 69 % (42-75); PLATELET COUNT 177 10^3/uL (130-400); WHITE BLOOD COUNT 7.5 10^3/uL (4.3-11.0)
[2022-08-06 06:34] LABS: ALBUMIN 3.3 GM/DL (3.2-4.5); POTASSIUM 3.3 MMOL/L (3.6-5.0)
[2022-08-06 06:36] LABS: CALCIUM 8.6 MG/DL (8.5-10.1)
[2022-08-06 06:37] LABS: TOTAL PROTEIN 5.9 GM/DL (6.4-8.2)
[2022-08-06 06:39] LABS: BILIRUBIN,TOTAL 1.5 MG/DL (0.1-1.0)
[2022-08-06 06:41] LABS: CREATININE SERUM 0.69 MG/DL (0.60-1.30)
[2022-08-06] MEDS ORDERED: HEParin (CATH LAB) 2,000 ML IV ONE (06:46)
[2022-08-06] MEDS ORDERED: LIDOCAINE 1% INJ 30 ML (XYLOCAINE) VIAL ONE (06:46)
[2022-08-06] MEDS ORDERED: HEParin 1000 UNIT/ML (10ML VIAL) FOR BOLUS ONE (07:52)
[2022-08-06] MEDS ORDERED: VERAPAMIL 5 MG/2 ML (CALAN) VIAL IV ONE (07:52)
[2022-08-06] MEDS ORDERED: MIDAZOLAM 2 MG/2 ML (VERSED) VIAL ONE (07:52)
[2022-08-06] MEDS ORDERED: fentaNYL INJ 100 MCG/2 ML AMP ONE (07:52)
[2022-08-06] MEDS ORDERED: NITRO DRIP 25000 MCG/D5W 0 ML IV ONE (07:53)
[2022-08-06] MEDS ORDERED: NS IV 1000 ML 1,000 ML IV ONE (08:00)
[2022-08-06] MEDS: KCL 20 MEQ TAB (K-DUR) PO SCH ×4 (08:00→20:13)
[2022-08-06] MEDS: MAGNESIUM OXIDE (MAG-OX)400 MG TAB PO SCH ×2 (08:00→18:14)
[2022-08-06] MEDS: DOCUSATE SODIUM 100 MG (COLACE) CAP PO SCH ×2 (08:00→20:18)
[2022-08-06] MEDS: SACUBITRIL/VALSARTAN 24/26 MG (ENTRESTO) TABLET PO SCH ×2 (08:22→20:13)
[2022-08-06] MEDS: ASPIRIN E.C. 81 MG (ECOTRIN) TAB PO SCH (08:22)
--- NOTE | 2022-08-06 08:58 | Cardiology Progress Note ---
Subjective Date Seen by Provider: Aug 06, 2022 Time Seen by Provider: 08:53 Subjective/Events-last exam Patient was seen at bedside, feeling better, reporting improvement in his symptoms. No chest pain was reported. Review of Systems General: No Chills, No Night Sweats, No Fatigue, No Malaise, No Appetite, No Other HEENT: No Head Aches, No Visual Changes, No Eye Pain, No Ear Pain, No Dysphasia, No Sinus Congestion, No Post Nasal Drip, No Sore Throat, No Other Pulmonary: No Dyspnea, No Cough, No Pleuritic Chest Pain, No Other Cardiovascular: No: Chest Pain, Palpitations, Orthopnea, Paroxysmal Noc. Dyspnea, Edema, Lt Headedness, Other Objective-Cardiology Exam Last Set of Vital Signs Vital Signs 08/03/22 08/06/22 08/06/22 08/06/22 08/06/22 22:45 02:08 04:00 07:21 08:27 Temp 36.9 Pulse 85 Resp 11 B/P (MAP) 111/77 (88) Pulse Ox 93 O2 Delivery Room Air O2 Flow Rate 2.00 FiO2 21 I&O Intake and Output 08/06/22 00:00 Intake Total 2950 ml Output Total 5900 ml Balance -2950 ml Intake Oral 2950 ml Output Urine Total 5900 ml # Voids 3 # Bowel Movements 1 General: Alert, Oriented X3, Cooperative HEENT: Atraumatic, PERRLA Neck: Supple, No JVD, No Thyromegaly Lungs: Clear to Auscultation, Normal Air Movement Heart: Regular Rate, Normal S1, Normal S2, Other (Systolic murmur) Abdomen: Normal Bowel Sounds, Soft, No Tenderness, No Hepatosplenomegaly, No Masses Extremities: No Clubbing, No Cyanosis, No Edema, Normal Pulses, No Tenderness/Swelling Skin: No Rashes, No Breakdown, No Significant Lesion Neuro: Normal Gait, Normal Speech, Strength at 5/5 X4 Ext, Normal Tone, Sensation Intact Psych/Mental Status: Mental Status NL, Mood NL Results Lab Laboratory Tests 08/06/22 05:58 A/P-Cardiology Admission Diagnosis Chest pain Coronary artery disease Congestive heart failure, acute on chronic left ventricular systolic dysfunction, dilated cardiomyopathy Non-ST elevation myocardial infarction Assessment/Plan Chest pain nonspecific etiology, patient has been reporting episodes of mild chest pain on and off for the past 2 months. Planning to proceed with cardiac catheterization Coronary artery disease, history of CABG x3 done in 2014 in [facility] in [place] with Dr. Dominguez. Reporting history of mitral valve ring during the bypass surgery, echocardiogram and fluoroscopy did not show any ring on the mitral valve. Significant drop in his left ventricular function with ejection fraction 15%. Non-ST elevation myocardial infarction. Mild elevation in troponin, probably type II HI Cardiac catheterization carried out on August 06, 2022 with patent JUARES to LAD, patent vein graft of the JUARES to the circumflex artery and patent vein graft to the right coronary artery with small vessel disease distally Congestive heart failure, acute on chronic left ventricular systolic dysfunction, combined ischemic and nonischemic cardiomyopathy, dilated cardiomyopathy Significant drop in left ventricular function Cardiac catheterization was carried out on August 06, 2022 showing small vessel disease with patent 3 bypasses. Patient tolerating metoprolol and Entresto, planning for LifeVest Hypertension, labile blood pressure. Monitor response to current treatment Hyperlipidemia, monitor lipids Mild bilateral carotid stenosis, continue to monitor History of chewing tobacco History of noncompliance KARLA VIVAR MD Aug 06, 2022 08:58
--- NOTE | 2022-08-06 08:59 | Cardiac Procedure Note-CS/ASA ---
Pre-Procedure Note Pre-Op Procedure Note Date of Available H&P: Aug 06, 2022 Date H&P Reviewed: Aug 06, 2022 Time H&P Reviewed: 08:59 History & Physical: H&P Reviewed, Patient Examed, No changes noted Pre-Operative Diagnosis: Congestive heart failure Conscious Sedation Pre-Proced Time 08:59 ASA Score 3 For ASA 3 and 4: Consider anesthesia and medical clearance. Also, for patients with a history of failed moderate sedation consider anesthesia. Airway Lungs Heart ASA score ASA 1: a normal healthy patient ASA 2: a patient with a mild systemic disease (mid diabetes, controlled hypertension, obesity ASA 3: a patient with a severe systemic disease that limits activity (angina, COPD, prior Myocardial infarction) ASA 4: a patient with an incapacitating disease that is a constant threat to life (CHF, renal failure) ASA 5: a moribund patient not expected to survive 24 hrs. (ruptured aneurysm) ASA 6: a declared brain- patient whose organs are being harvested. For emergent operations, add the letter E after the classification Mallampati Classification Grade 3 Sedation Plan Analgesia, Amnesia, Plan communicated to team members, Discussed options with patient/fam, Discussed risks with patient/fam The patient is an appropriate candidate to undergo the planned procedure, sedation, and anesthesia. The patient immediately re-assessed prior to indication. KARLA VIVAR MD Aug 06, 2022 08:59
[2022-08-06] MEDS ORDERED: PATIENT MAY USE OWN MEDS, ALL PO SCH (09:45)
[2022-08-06] MEDS: NS IV 1000 ML 1,000 ML IV SCH (09:50)
--- NOTE | 2022-08-06 09:50 | Cardiac Cath Report ---
Cardiac Cath Report Physician (s)/Oven Roaster (s) Physician KARLA VIVAR MD Pre-Procedure Diagnosis Pre-Procedure Diagnosis: Congestive heart failure Post-Procedure Note Procedure Start Date: Aug 06, 2022 Name of Procedure: Left heart catheterization Vein graft angiogram JUARES angiogram Aortic root angiogram Findings/Procedure Note PROCEDURE NOTE: 56 years old gentleman with history of coronary artery disease, admitted with acute congestive heart failure, had mild elevation in troponin and significant deterioration in left ventricular function, decision was made to proceed with cardiac catheterization possible PTCA. After explaining the procedure to the patient, all pros and cons were explained, all questions were answered. The patient signed the consent and then he was placed on the cardiac catheterization laboratory. Groin was prepped SL fashion local anesthesia was used. Sheath placed in the right femoral artery. Ben right and left catheter were used to access the coronary system.Vein Graft evaluated. JUARES evaluated. Pigtail was used to access the left ventricular cavi ty. Left ventriculogram was not done, pressure was measured Aortic root angiogram was done At the end of the procedure the sheath was removed. Closure device was deployed FINDINGS: Hemodynamics LV 94/18, end-diastolic pressure of 18 Aorta 94/66 mean of 79 ANATOMY: Left Main is free of obstructive disease Left Anterior Descending is occluded proximally with patent JUARES to LAD Left Circumflex has severe stenosis proximally with patent vein graft to the circumflex system Right Coronary Artery is occluded proximally with patent vein graft to the right coronary artery JUARES to LAD is patent, there is of the JUARES and vein graft to the circumflex artery that is patent with good flow distally, small vessel disease distally Vein Graft to the right coronary artery is patent with small vessel disease distally LV Gram was not done, pressure was measured, patient had ejection fraction 15% by echocardiogram Aorta evaluated with aortic root angiogram showing slightly prominent aortic root and ascending aorta, no dissection or aneurysm. CONCLUSION: 1. Severe [place] coronary artery disease with patent JUARES to LAD, vein graft of the JUARES to the circumflex artery and patent vein graft to the right coronary artery with small vessel disease distally 2. Severe cardiomyopathy with elevated left ventricular end-diastolic pressure 3. Prominent ascending aorta and aortic root. DISCUSSION AND RECOMMENDATION: Continue to maximize medical therapy, adding a LifeVest and monitor tolerance and response. Anesthesia Type: Conscious Sedation Estimated blood loss (mL): 20 ml Contrast Amount: 53 ml Total Radiation Dose: 254 mGy Post-Procedure Diagnosis Post-operative diagnosis: Coronary artery disease Congestive heart failure, acute left ventricular systolic dysfunction Hypertension Hyperlipidemia KARLA VIVAR MD Aug 06, 2022 09:50
--- NOTE | 2022-08-06 09:53 | Occ Therapy Progress Note ---
Therapy Progress Note Pt in heart cath procedure. Will attempt treatment at next available time. Pt will be on bedrest after procedure. given energy conservation handout for pt. CATHRYN PALOMARES Aug 06, 2022 09:53
--- NOTE | 2022-08-06 10:07 | Physical Therapy Daily Note ---
PT Daily Note-Current Subjective Patient agrees to PT. Pain Section J - Health Conditions 1. Rarely or not at all 2. Occasionally 3. Frequently 4. Almost constantly 8. Unable to answer Pain Effect on Sleep: 1 Pain Interference with Therapy: 1 Pain Interference w/Day-to-Day: 1 Mental Status Patient Orientation: Normal For Age Transfers SCALE: Activities may be completed with or without assistive devices. 0-Asjxoawvvw-rmvywfg completes the activity by him/herself with no assistance from a helper. 5-Set-up or Clean-up Assistance-helper sets up or cleans up; patient completes activity. [place] assists only prior to or following the activity. 4-Supervision or Touching Assistance-helper provides verbal cues and/or touching/steadying and/or contact guard assistance as patient completes activity. Assistance may be provided throughout the activity or intermittently. 3-Partial/Moderate Assistance-helper does LESS THAN HALF the effort. [place] lifts, holds or supports trunk or limbs, but provides less than half the effort. 2-Substantial/Maximal Assistance-helper does MORE THAN HALF the effort. [place] lifts or holds trunk or limbs and provides more than half the effort. 9-Iofzkgjuy-sxiogw does ALL the effort. Patient does none of the effort to complete the activity. Or, the assistance of 2 or more helpers is required for the patient to complete the activity. If activity was not attempted, code reason: 7-Patient Refused. 9-Not Applicable-not attempted and the patient did not perform the activity before the current illness, exacerbation or injury. 10-Not Attempted due to Environmental Limitations-(lack of equipment, weather restraints, etc.). 88-Not Attempted due to Medical Conditions or Safety Concerns. Lying to Sitting/Side of Bed(Q: 6 Sit to Stand (QC): 6 Chair/Fnl-md-Vbati Xfer(QC): 6 Weight Bearing Weight Bearing/Tolerated Weight Bearing/Tolerated Gait Training Distance: >700' Walk 10 feet (QC): 6 Walk 50 ft with 2 Turns(QC): 6 Walk 150 ft (QC): 6 Gait Assistive Device: FWW steady gait sequence with no deviation Assessment Patient is currently at independent PLOF with all gross motor skills safely and no longer requires skilled PT intervention. PT to dismiss patient from services at this time. PT Detention Goals Grounds Crew Supervisor Goals PT Detention Goals Time Frame: Aug 18, 2022 Sit to Stand (QC): 6 Walk 10 feet (QC): 6 Walk 50ft with 2 Turns (QC): 6 Walk 150 ft (QC): 6 12 Steps (QC): 6 PT Plan Treatment/Plan Treatment Plan: Discontinue PT, goals met Treatment Plan: Bed Mobility, Education, Functional Activity Trina, Functional Strength, Gait, Safety, Therapeutic Exercise, Transfers Treatment Duration: Aug 18, 2022 Frequency: 6 times per week Estimated Hrs Per Day: .25 hour per day Patient and/or Family Agrees t: Yes Time Time In: 730 Time Out: 745 Total Billed Treatment Time: 15 Total Billed Treatment 1 visit FA 15 min VALE BARDALES PT Aug 06, 2022 10:07
[2022-08-06] MEDS ORDERED: L.AC1CAP6 PO (11:59)
[2022-08-06] MEDS ORDERED: LISI20TA26 PO (11:59)
[2022-08-06] MEDS ORDERED: MTP25TSR PO (11:59)
[2022-08-06] MEDS: ENOXAPARIN 40 MG/0.4 ML (LOVENOX) SYR SC SCH (20:14)
[2022-08-07] VITALS (11 sets, daily range): BP systolic 102–131; BP diastolic 75–101
[2022-08-07] MEDS: RT-ALBUTEROL/IPRATROPIUM 3 ML (DUONEB) VIAL INH SCH ×3 (02:20→14:56)
[2022-08-07 06:06] LABS: BASOPHILS % (AUTO) 1 % (0-10); EOSINOPHILS # (AUTO) 0.1 10^3/uL (0.0-0.3); EOSINOPHILS % (AUTO) 2 % (0-10); HEMATOCRIT 42 % (40-54); HEMOGLOBIN 13.9 g/dL (13.3-17.7); LYMPHOCYTES # (AUTO) 1.1 10^3/uL (1.0-4.0); LYMPHOCYTES % (AUTO) 17 % (12-44); MEAN CORPUSCULAR HEMOGLOBIN 29 pg (25-34); MEAN CORPUSCULAR HGB CONC 33 g/dL (32-36); MEAN CORPUSCULAR VOLUME 88 fL (80-99); MEAN PLATELET VOLUME 10.3 fL (9.0-12.2); MONOCYTES # (AUTO) 0.9 10^3/uL (0.0-1.0); MONOCYTES % (AUTO) 14 % (0-12); NEUTROPHILS # (AUTO) 4.4 10^3/uL (1.8-7.8); NEUTROPHILS % (AUTO) 67 % (42-75); PLATELET COUNT 211 10^3/uL (130-400); WHITE BLOOD COUNT 6.6 10^3/uL (4.3-11.0)
[2022-08-07 06:08] LABS: ALBUMIN 3.6 GM/DL (3.2-4.5); POTASSIUM 3.7 MMOL/L (3.6-5.0)
[2022-08-07 06:09] LABS: CALCIUM 9.2 MG/DL (8.5-10.1)
[2022-08-07] MEDS: FUROSEMIDE 40 MG/4 ML INJ (LASIX) IVP SCH (06:10)
[2022-08-07 06:11] LABS: TOTAL PROTEIN 6.5 GM/DL (6.4-8.2)
[2022-08-07 06:12] LABS: BILIRUBIN,TOTAL 1.3 MG/DL (0.1-1.0)
[2022-08-07 06:14] LABS: CREATININE SERUM 0.68 MG/DL (0.60-1.30)
[2022-08-07] MEDS: NS IV 1000 ML 1,000 ML IV SCH ×3 (06:26→15:51)
--- NOTE | 2022-08-07 08:20 | Cardiology Progress Note ---
Subjective Date Seen by Provider: Aug 07, 2022 Time Seen by Provider: 08:19 Subjective/Events-last exam Patient is sitting up in bed, no new complaints. Denies any chest pain Objective-Cardiology Exam Last Set of Vital Signs Vital Signs 08/06/22 08/07/22 08/07/22 15:13 02:21 04:00 Temp 37.0 O2 Flow Rate 0.00 FiO2 21 I&O Intake and Output 08/07/22 00:00 Intake Total 3350 ml Output Total 4900 ml Balance -1550 ml Intake Oral 2350 ml IV Total 1000 ml Output Urine Total 4900 ml General: Alert, Oriented X3, Cooperative HEENT: Atraumatic, PERRLA Neck: Supple, No JVD, No Thyromegaly Lungs: Clear to Auscultation, Normal Air Movement Heart: Regular Rate, Normal S1, Normal S2, Other (Systolic murmur) Abdomen: Normal Bowel Sounds, Soft, No Tenderness, No Hepatosplenomegaly, No Masses Extremities: No Clubbing, No Cyanosis, No Edema, Normal Pulses, No Tenderness/Swelling Skin: No Rashes, No Breakdown, No Significant Lesion Neuro: Normal Gait, Normal Speech, Strength at 5/5 X4 Ext, Normal Tone, Sensation Intact Psych/Mental Status: Mental Status NL, Mood NL Results Lab Laboratory Tests 08/07/22 05:50 A/P-Cardiology Admission Diagnosis Chest pain Coronary artery disease Congestive heart failure, acute on chronic left ventricular systolic dysfunction, dilated cardiomyopathy Non-ST elevation myocardial infarction Assessment/Plan Chest pain nonspecific etiology, patient has been reporting episodes of mild chest pain on and off for the past 2 months. Coronary artery disease, history of CABG x3 done in 2013 in [facility] in [place] with Dr. Dominguez. Reporting history of mitral valve ring during the bypass surgery, echocardiogram and fluoroscopy did not show any ring on the mitral valve. Significant drop in his left ventricular function with ejection fraction 15%. Non-ST elevation myocardial infarction. Mild elevation in troponin, probably type II CO Cardiac catheterization carried out on August 06, 2022 with patent JUARES to LAD, patent vein graft of the JUARES to the circumflex artery and patent vein graft to the right coronary artery with small vessel disease distally Sustained ventricular tachycardia noted on telemetry for 17 seconds. Patient was asymptomatic during the episode I increase metoprolol to 50 mg twice daily and continue on Entresto Had a long discussion with the patient and advised him to stay until he has the LifeVest on. Congestive heart failure, acute on chronic left ventricular systolic dysfunction, combined ischemic and nonischemic cardiomyopathy, dilated cardiomyopathy Significant drop in left ventricular function Cardiac catheterization was carried out on August 06, 2022 showing small vessel disease with patent 3 bypasses. Patient tolerating metoprolol and Entresto, planning for LifeVest Hypertension, labile blood pressure. Monitor response to current treatment Hyperlipidemia, monitor lipids Mild bilateral carotid stenosis, continue to monitor History of chewing tobacco History of noncompliance Supervisory-Addendum Brief Supervisory Addendum Participated in pt care: history, MDM, physical Personally performed: exam, history, MDM Care discussed with: NAZANIN Results interpretation: Verified all documentation Notes: Patient was seen and evaluated with Rachel, examination performed, management plan was discussed, agree with the current scribed note, I made few changes to the note using Italic font Patient was seen at bedside, asymptomatic asking to go home Discussed with him regarding the telemetry finding with 17 seconds ventricular tachycardia, asymptomatic during the episode Awaiting LifeVest and increasing beta-librado dose RACHEL OSUNA Aug 07, 2022 08:20 KARLA VIVAR MD Aug 07, 2022 08:57
[2022-08-07] MEDS: ASPIRIN E.C. 81 MG (ECOTRIN) TAB PO SCH (08:36)
[2022-08-07] MEDS: DOCUSATE SODIUM 100 MG (COLACE) CAP PO SCH (08:36)
[2022-08-07] MEDS: KCL 20 MEQ TAB (K-DUR) PO SCH ×2 (08:36→15:51)
[2022-08-07] MEDS: MAGNESIUM OXIDE (MAG-OX)400 MG TAB PO SCH (08:36)
[2022-08-07] MEDS: SACUBITRIL/VALSARTAN 24/26 MG (ENTRESTO) TABLET PO SCH (08:36)
[2022-08-07] MEDS ORDERED: meTOprolol TARTRATE 50 MG (LOPRESSOR) TAB PO SCH (09:00)
--- NOTE | 2022-08-07 09:59 | Progress Note - Hospitalist ---
Subjective HPI/CC On Admission Date Seen by Provider: Aug 07, 2022 Chief complaint: Shortness of breath HPI: This is a 56-year-old male with a history of hypertension and tobacco chewing who presented to [facility] with shortness of breath. Patient was assessed to have new onset congestive heart failure. IV Lasix was ordered and cardiology consultation with Dr. Hairston ensued. Patient was transported and admitted to cardiac stepdown unit. Patient feels much better. Less short of breath but still in overload. Good urinary output after IV Lasix. Oxygen remains good. Echo shows ejection fraction 25% so new onset cardiomyopathy will require cardiac catheterization. Objective Exam Vital Signs Vital Signs Date Time Temp Pulse Resp B/P (MAP) Pulse Ox O2 Delivery O2 Flow Rate FiO2 08/07/22 11:00 92 29 111/92 (98) 96 Room Air 08/07/22 04:00 37.0 08/07/22 02:21 0.00 08/06/22 15:13 21 Capillary Refill : Less Than 3 Seconds Results/Procedures Lab Laboratory Tests 08/07/22 05:50 Patient resulted labs reviewed. Assessment/Plan Assessment and Plan Assess & Plan/Chief Complaint Assessment: New onset congestive heart failure New cardiomyopathy ejection fraction 25% CAD prev intervention Hypertension Oral tobacco user Leukocytosis Hypokalemia Plan: IV Lasix Cardiology consultation appreciated Cardiac stepdown Needs cardiac cath today Replace potassium Diagnosis/Problems Diagnosis/Problems (1) Acute heart failure with reduced ejection fraction and diastolic dysfunction (2) Cardiomyopathy Status: Acute (3) Primary hypertension Status: Chronic (4) Mitral regurgitation Status: Chronic (5) Pulmonary hypertension Status: Acute (6) Mixed hyperlipidemia Status: Chronic (7) Coronary artery disease with unstable angina pectoris Status: Acute RENITA PHILLIPS DO Aug 07, 2022 09:59
--- NOTE | 2022-08-07 10:21 | Occupational Ther Daily Note ---
OT Current Status-Daily Note Subjective Pt alert, sitting EOB. Pt agrees to therapy. No c/o pain. Mental Status/Objective Patient Orientation: Person, Place Attachments: IV, Telemetry ADL-Treatment Therapy Code Descriptions/Definitions Functional [place] Measure: 0=Not Assessed/NA 4=Minimal Assistance 1=Total Assistance 5=Supervision or Setup 2=Maximal Assistance 6=Modified [place] 3=Moderate Assistance 7=Complete IndependenceSCALE: Activities may be completed with or without assistive devices. 8-Etazzwqdoh-kwbreao completes the activity by him/herself with no assistance from a helper. 5-Set-up or Clean-up Assistance-helper sets up or cleans up; patient completes activity. [place] assists only prior to or following the activity. 4-Supervision or Touching Assistance-helper provides verbal cues and/or touching/steadying and/or contact guard assistance as patient completes activity. Assistance may be provided throughout the activity or intermittently. 3-Partial/Moderate Assistance-helper does LESS THAN HALF the effort. [place] lifts, holds or supports trunk or limbs, but provides less than half the effort. 2-Substantial/Maximal Assistance-helper does MORE THAN HALF the effort. [place] lifts or holds trunk or limbs and provides more than half the effort. 1-Xrqwbcmhh-tbpara does ALL the effort. Patient does none of the effort to complete the activity. Or, the assistance of 2 or more helpers is required for the patient to complete the activity. If activity was not attempted, code reason: 7-Patient Refused. 9-Not Applicable-not attempted and the patient did not perform the activity before the current illness, exacerbation or injury. 10-Not Attempted due to Environmental Limitations-(lack of equipment, weather restraints, etc.). 88-Not Attempted due to Medical Conditions or Safety Concerns. Other Treatment Educated pt on energy conservation strategies/techniques. Pt verbalized understanding of techniques and was able to verbalize personal strategies used during daily routines. Pt has met goal for energy conservation. OT to discharge pt from services. After session, pt sitting EOB with call light/phone in reach. All needs met. Education OT Patient Education: Energy conservation Teaching Recipient: Patient Teaching Methods: Handout, Discussion Response to Teaching: Verbalize Understanding, Return Demonstration OT Director Strategy Goals Director Strategy Goals Time Frame: Aug 07, 2022 Pt will verbalize three energy conservation techniques to use when needed-(met 08/07/2022) 1=Demonstrate adherence to instructed precautions during ADL tasks. 2=Patient will verbalize/demonstrate understanding of assistive devices/modifications for ADL. 3=Patient will improve strength/tolerance for activity to enable patient to perform ADL's. OT Education/Plan Problem List/Assessment Impaired functional mobility Discharge Recommendations Plan/Recommendations: Discharge/Goals Met Treatment Plan/Plan of Care Patient would benefit from OT for education, treatment and training to promote independence in ADL's, mobility, safety and/or upper extremity function for ADL's. Plan of Care: OTHER (Energy conservation education) Treatment Duration: Aug 07, 2022 Frequency: 2 times per week Estimated Hrs Per Day: .25 hour per day Agreement: Yes Rehab Potential: Good Time/GCodes Start Time: 09:39 Stop Time: 09:48 Total Time Billed (hr/min): 9 Billed Treatment Time 1 visit-FA 1 (9 min) CATHRYN PALOMARES Aug 07, 2022 10:21
[2022-08-07] MEDS ORDERED: ASPI-1238 PO (14:04)
[2022-08-07] MEDS ORDERED: METO50TA15 PO (14:04)
[2022-08-07] MEDS ORDERED: ATOR40TA PO (14:04)
[2022-08-07] MEDS ORDERED: SACU1TAB2 PO (14:04)
--- NOTE | 2022-08-07 14:04 | Discharge Summary ---
Discharge Summary Hospital Course Was the Problem List Reviewed?: Yes Problems/Dx: (1) Acute heart failure with reduced ejection fraction and diastolic dysfunction (2) Troponin level elevated (3) Coronary artery disease with unstable angina pectoris Status: Acute (4) Cardiomyopathy Status: Acute (5) Pulmonary hypertension Status: Acute (6) Mitral regurgitation Status: Chronic (7) Primary hypertension Status: Chronic (8) Mixed hyperlipidemia Status: Chronic (9) Chewing tobacco nicotine dependence Status: Chronic Hospital Course Date of Admission: Aug 03, 2022 at 20:37 Admission Diagnosis : Family Physician/Provider: [facility] Date of Discharge: 08/07/22 Discharge Diagnosis: [ ] Hospital Course: Pt is doing better Vtach noted on telemetry yesterday Overall doing pretty well otherwise Wants to go home soon No major issues during course. Admitted for new CHF and cath revealed only small vessel disease. Life vest ordered for low EF. V tach noted on tely so meds were adjusted and patient was deemed stable for DC. Labs and Pending Lab Test: Laboratory Tests 08/07/22 05:50: White Blood Count 6.6, Red Blood Count 4.83, Hemoglobin 13.9, Hematocrit 42, Mean Corpuscular Volume 88, Mean Corpuscular Hemoglobin 29, Mean Corpuscular Hemoglobin Concent 33, Red Cell Distribution Width 14.6H, Platelet Count 211, Mean Platelet Volume 10.3, Immature Granulocyte % (Auto) 0, Neutrophils (%) (Auto) 67, Lymphocytes (%) (Auto) 17, Monocytes (%) (Auto) 14H, Eosinophils (%) (Auto) 2, Basophils (%) (Auto) 1, Neutrophils # (Auto) 4.4, Lymphocytes # (Auto) 1.1, Monocytes # (Auto) 0.9, Eosinophils # (Auto) 0.1, Basophils # (Auto) 0.0, Immature Granulocyte # (Auto) 0.0, Sodium Level 140, Potassium Level 3.7, Chloride Level 101, Carbon Dioxide Level 26, Anion Gap 13, Blood Urea Nitrogen 11, Creatinine 0.68, Estimat Glomerular Filtration Rate 109, BUN/Creatinine Ratio 16, Glucose Level 99, Calcium Level 9.2, Corrected Calcium 9.5, Total Bi lirubin 1.3H, Aspartate Amino Transf (AST/SGOT) 28, Alanine Aminotransferase (ALT/SGPT) 22, Alkaline Phosphatase 174H, Total Protein 6.5, Albumin 3.6 Home Meds Active Reported Probiotic (L.acidoph & Paracasei,B.lactis) 10 Billion Cell Capsule 1 Each PO HS Metoprolol Succinate 25 Mg Tab.er.24h 25 Mg PO HS Lisinopril 20 Mg Tablet 20 Mg PO HS Assessment/Pt Instructions PCP in 1 week Discharge Planning: <30 minutes discharge planning Discharge Instructions Discharge Diet: No Restrictions, Cardiac Diet Discharge Physical Examination Vital Signs Vital Signs Date Time Temp Pulse Resp B/P (MAP) Pulse Ox O2 Delivery O2 Flow Rate FiO2 08/07/22 11:00 92 29 111/92 (98) 96 Room Air 08/07/22 04:00 37.0 08/07/22 02:21 0.00 08/06/22 15:13 21 General Appearance: No Apparent Distress, WD/WN Respiratory: Lungs Clear, Normal Breath Sounds Allergies: Coded Allergies: No Known Drug Allergies (Unverified , 12/18/21) Discharge Summary Date of Admission Aug 03, 2022 at 20:37 Date of Discharge Discharge Date: Aug 07, 2022 Admission Diagnosis Assessment: New onset congestive heart failure New cardiomyopathy ejection fraction 25% Hypertension Oral tobacco user Leukocytosis Plan: IV Lasix Cardiology consultation appreciated Cardiac stepdown Needs cardiac cath Discharge Diagnosis Assessment: New onset congestive heart failure New cardiomyopathy ejection fraction 25% CAD prev intervention Hypertension Oral tobacco user Leukocytosis Hypokalemia Plan: IV Lasix Cardiology consultation appreciated Cardiac stepdown Needs cardiac cath today Replace potassium (1) Acute heart failure with reduced ejection fraction and diastolic dysfunction Assessment & Plan: He has severe left ventricular systolic dysfunction and grade 2 diastolic dysfunction as noted on his echocardiogram above. I do not have any old echocardiograms for comparison. He has been receiving intravenous furosemide. I started him back on metoprolol succinate and changed his lisinopril over to low-dose Entresto on 08/04. Once we get his volume overload under control, he will likely need further evaluation with a cardiac catheterization. He is tentatively scheduled for a cardiac catheterization with Dr. Rose on 08/06/2022 at 09:00. (2) Troponin level elevated Assessment & Plan: He may have suffered a type II non-ST elevation myocardial infarction secondary to supply/demand mismatch from the acute heart failure. We will proceed with a cardiac catheterization as above. (3) Coronary artery disease with unstable angina pectoris Status: Acute Assessment & Plan: Some of his symptoms could also be consistent with unstable angina. He has nonspecific findings on his electrocardiogram. His troponin level in the outside emergency room was undetectable but borderline elevated here. I restarted aspirin, beta-librado, and atorvastatin on 08/06. (4) Cardiomyopathy Status: Acute Assessment & Plan: He has severe left ventricular systolic dysfunction as noted on his echocardiogram today. I suspect this may be ischemic. I started him on metoprolol succinate and Entresto as outlined above. We will titrate these m edications and consider adding an aldosterone antagonist as tolerated by his blood pressure and renal function. We may also need to consider prescribing a LifeVest prior to discharge. I discussed this with the patient and he would not be opposed. (5) Pulmonary hypertension Status: Acute Assessment & Plan: He has moderate to severe pulmonary hypertension. I suspect some of this is acute due to the acute heart failure. This will need to be followed longitudinally. (6) Mitral regurgitation Status: Chronic Assessment & Plan: He has mild mitral regurgitation. He tells me he had a mitral valve annuloplasty at the time of bypass surgery. (7) Primary hypertension Status: Chronic Assessment & Plan: As above, I resume metoprolol and change lisinopril over to Entresto. Although Entresto is not indicated for hypertension, it has significant antihypertensive effects. His blood pressures are running somewhat low at times and this may be related to the intravenous diuretic. (8) Mixed hyperlipidemia Status: Chronic Assessment & Plan: I intensified his dose of statin medication in light of the possible acute coronary syndrome. (9) Chewing tobacco nicotine dependence Status: Chronic Assessment & Plan: He needs to work on tobacco cessation. He was counseled in this regard. RENITA PHILLIPS DO Aug 07, 2022 14:04
== END 2022-08-07 17:00 | disposition home or self-care (01) | DRG 280 ==
LOC: EDUNIT# 17:38 → ER FS 17:39 → CSD 20:37
PROVIDERS: ADMIT Internal Medicine; ATTEND Internal Medicine
PROC: 4A023N7 Measurement of Cardiac Sampling and Pressure, Left Heart, Percutaneous Approach (ICD-10-PCS; principal; 2022-08-06)
PROC: B2121ZZ Fluoroscopy of Single Coronary Artery Bypass Graft using Low Osmolar Contrast (ICD-10-PCS; 2022-08-06)
PROC: B2181ZZ Fluoroscopy of Left Internal Mammary Bypass Graft using Low Osmolar Contrast (ICD-10-PCS; 2022-08-06)
PROC: B3101ZZ Fluoroscopy of Thoracic Aorta using Low Osmolar Contrast (ICD-10-PCS; 2022-08-06)
PROC: B2111ZZ Fluoroscopy of Multiple Coronary Arteries using Low Osmolar Contrast (ICD-10-PCS; 2022-08-06)
DX: I11.0 Hypertensive heart disease with heart failure (principal); I50.41 Acute combined systolic (congestive) and diastolic (congestive) heart failure; I21.A1 Myocardial infarction type 2; I42.9 Cardiomyopathy, unspecified; I25.110 Atherosclerotic heart disease of native coronary artery with unstable angina pectoris; Z95.1 Presence of aortocoronary bypass graft; F17.220 Nicotine dependence, chewing tobacco, uncomplicated; D72.829 Elevated white blood cell count, unspecified; I34.0 Nonrheumatic mitral (valve) insufficiency; I27.20 Pulmonary hypertension, unspecified; E78.2 Mixed hyperlipidemia; E87.6 Hypokalemia; Z91.199 Patient's noncompliance with other medical treatment and regimen due to unspecified reason; I65.23 Occlusion and stenosis of bilateral carotid arteries; I25.5 Ischemic cardiomyopathy; I42.8 Other cardiomyopathies; I42.0 Dilated cardiomyopathy; Z20.822 Contact with and (suspected) exposure to COVID-19
CPT/HCPCS: 36415; 71046; 80053; 80061; 83735; 83880; 84443; 84484; 85007; 85025; 85027; 85610; 85730; 87636; 93005; 93041; 93306; 93459; 93567; 94640

== ENCOUNTER 2022-08-28 13:23 | Emergency (ER) | payer SELFPAY ==
[~2022-08-28] VITALS: Ht 185 cm; Wt 86.0 kg
[~2022-08-28 13:23] MED LIST: ASPI-1238 PO; ATOR40TA PO; L.AC1CAP6 PO; LISI20TA26 PO; METO50TA15 PO; MTP25TSR PO; SACU1TAB2 PO
--- NOTE | 2022-08-28 13:31 | ED Cough/URI ---
General Chief Complaint: Cough/Cold/Flu Symptoms Stated Complaint: CONGESTION/COUGH/SOA/CHEST PAIN History of Present Illness Date Seen by Provider: Aug 28, 2022 Time Seen by Provider: 13:31 Initial Comments 56-year-old male presents with cough. Patient reports has had a cough for 4 weeks. Patient was admitted on 08/03/2022 due to congestive heart failure and fluid overload. He was found to have an extremely low ejection fraction of 25%. At that time he was diuresed and sent home on 5 days of Lasix. He was instructed to follow-up with his primary care provider which he has not. Patient presents today because he "wants an antibiotic" for his cough because its been persistent. Patient is not having fevers or chills. Patient is currently not on any diuresis and appears to have a six-point pound weight gain since his discharge. Patient reports he went to urgent care prior to coming to the ER. He was mad because they would not give an antibiotic so he came over here requesting antibiotics. Patient does have frequent clearing of his throat. Patient has a significant smoking history. Allergies and Home Medications Allergies Coded Allergies: No Known Drug Allergies (Unverified , 12/18/21) Patient Home Medication List Home Medication List Reviewed: Yes Aspirin (Aspirin EC) 81 Mg Tablet.dr, 81 MG PO DAILY Prescribed by: RENITA PHILLIPS on 08/07/22 1404 Atorvastatin Calcium (Lipitor) 40 Mg Tablet, 40 MG PO HS Prescribed by: RENITA PHILLIPS on 08/07/22 1404 L.acidoph & Paracasei,B.lactis (Probiotic) 10 Billion Cell Capsule, 1 EACH PO HS, (Reported) Entered as Reported by: POOJA WATT on 08/06/22 1159 Metoprolol Tartrate (Metoprolol Tartrate) 50 Mg Tablet, 50 MG PO BID Prescribed by: RENITA PHILLIPS on 08/07/22 1404 Sacubitril/Valsartan (Entresto 24 mg-26 mg Tablet) 24 Mg-26 Mg Tablet, 0.5 TAB PO BID Prescribed by: RENITA PHILLIPS on 08/07/22 1404 Review of Systems Review of Systems Constitutional: No chills, No fever EENTM: no symptoms reported Respiratory: cough; No short of breath Cardiovascular: no symptoms reported Gastrointestinal: no symptoms reported Genitourinary: no symptoms reported Musculoskeletal: no symptoms reported Skin: no symptoms reported Past Xxozjdy-Whobsn-Osyktb Hx Immunizations Up To Date First/Initial COVID19 Vaccinat: Not currently vaccinated Second COVID19 Vaccination Nitesh: Not currently vaccinated Third COVID19 Vaccination Date: Not currently vaccinated Past Medical History Surgery/Hospitalization HX: TRIPLE BYPASS; Palpitations Surgeries: Yes CABG High Cholesterol Physical Exam Vital Signs - First Documented 08/28/22 13:25 Temp 36.5 Pulse 100 Resp 20 B/P (MAP) 129/91 (104) Pulse Ox 96 O2 Delivery Room Air Capillary Refill : Height: '" Weight: lbs. oz. kg; 23.13 BMI Method: General Appearance: no apparent distress HEENT: other (Mild posterior pharyngeal erythema) Respiratory: lungs clear, normal breath sounds Cardiovascular: normal peripheral pulses, other (2+ bilateral lower extremity edema) Gastrointestinal: non tender, soft Extremities: normal range of motion Neurologic/Psychiatric: alert, normal mood/affect, oriented x 3 Skin: normal color, warm/dry Progress/Results/Core Measures Suspected Sepsis SIRS Temperature: Pulse: Respiratory Rate: Blood Pressure / Mean: Results/Orders Lab Results Laboratory Tests Test 08/28/22 13:40 Range/Units Influenza Type A (RT-PCR) Not Detected Not Detecte Influenza Type B (RT-PCR) Not Detected Not Detecte SARS-CoV-2 RNA (RT-PCR) Not Detected Not Detecte My Orders Orders - ROSALINA BOLAÑOS DO Influenza A And B By Pcr (08/28/22 13:37) Covid 19 Inhouse Test (08/28/22 13:37) Outside Films For Comparison (08/28/22 ) Vital Signs/I&O 08/28/22 08/28/22 13:25 13:56 Temp 36.5 Pulse 100 Resp 20 B/P (MAP) 129/91 (104) Pulse Ox 96 O2 Delivery Room Air Room Air Capillary Refill : Progress Note : Progress Note Patient with a chronic cough that is likely multifactorial. Patient does have a 6 pound weight gain and what looks like pulmonary edema on his chest x-ray. Patient also has postnasal drip and some sinus drainage. Then I also feel is probably a small amount of reflux. Patient is negative for influenza and COVID. Patient to be treated with Lasix x5 days to help with the pulmonary edema and weight gain, recommended Flonase or similar nasal steroid and Zyrtec, Francesca or similar medication along with Pepcid twice daily. Patient should follow-up with his primary care provider in 1 week to have his symptoms rechecked. He is stable and discharged home Departure Impression Primary Impression: Chronic cough Additional Impressions: Systolic congestive heart failure Qualified Codes: I50.20 - Unspecified systolic (congestive) heart failure Postnasal drip Disposition: HOME, SELF-CARE Condition: Stable Departure-Patient Inst. Referrals: [facility] [place] ([place]) Primary Care Physician Patient Instructions: Chronic Sinusitis, Cough, Adult (DC) Add. Discharge Instructions: Pepcid 20 mg twice daily Flonase, Nasacort or other similar nasal steroid in addition to Zyrtec, Francesca or Claritin use as directed on package Follow-up with your primary care provider in 1 week for recheck of your symptoms All discharge instructions reviewed with patient and/or family. Voiced understanding. Scripts Benzonatate (TESSALON PERLES) 100 Mg Capsule 100 MG PO Q8H PRN for COUGH, #15 CAP Prov: ROSALINA BOLAÑOS DO 08/28/22 Furosemide (Lasix) 20 Mg Tablet 20 MG PO DAILY for 5 Days, #5 TAB Prov: ROSALINA BOLAÑOS DO 08/28/22 ROSALINA BOLAÑOS DO Aug 28, 2022 13:31
[2022-08-28] MEDS ORDERED: FURO-125 PO (14:22)
[2022-08-28] MEDS ORDERED: BENZ100C18 PO (14:22)
[2022-08-28 14:35] VITALS: BP 105/72
== END 2022-08-28 14:35 | disposition home or self-care (01) ==
LOC: EDUNIT# 13:23 → ER FS 13:26
DX: I50.20 Unspecified systolic (congestive) heart failure (principal); R09.82 Postnasal drip; Z87.891 Personal history of nicotine dependence; Z95.1 Presence of aortocoronary bypass graft; Z20.822 Contact with and (suspected) exposure to COVID-19
CPT/HCPCS: 87636

== ENCOUNTER → 2022-11-06 | Outpatient (CLI) | payer BC ==
[~2022-11-06] MED LIST changes: +BENZ100C18 PO; +FURO-125 PO; +GADOTERATE 0.5 MMOL/ML (CLARISCAN) 20 ML VIAL IV ONE
--- NOTE | 2022-11-06 17:02 | Diagnostic Imaging Report ---
EXAMINATION: MRI of the abdomen with and without contrast. TECHNIQUE: Multiplanar, multisequence MR images of the abdomen were obtained with and without intravenous contrast. HISTORY: Liver lesion. COMPARISON: None available. FINDINGS: Liver: The segment II liver lesion is T2 bright and T1 dark. There is peripheral discontinuous nodular enhancement with fill-in on delayed images. It measures 2.7 x 2.4 cm. The imaging features are in keeping with a hemangioma. No steatosis. No surface nodularity. Ducts: No biliary ductal dilation. Gallbladder: Normal. Pancreas: Normal. Spleen: Normal. Adrenals: Normal. Kidneys: No suspicious lesions. No hydronephrosis. There are simple cysts in the kidneys. Bowel: Normal. Other: There is a moderate amount of ascites. No lymphadenopathy. Visualized portions of the thorax are normal. No suspicious osseous lesions. IMPRESSION: 1. The liver lesion has imaging features consistent with a hemangioma. 2. Moderate amount of ascites. Dictated by: Dictated on workstation # [id number]
== END ==
LOC: RAD 13:45
PROVIDERS: ATTEND Allergy & Immunology
DX: R16.0 Hepatomegaly, not elsewhere classified (principal); R18.8 Other ascites
CPT/HCPCS: 74183

== ENCOUNTER → 2022-11-13 | Outpatient (CLI) | payer BC ==
[~2022-11-13] MED LIST changes: -GADOTERATE 0.5 MMOL/ML (CLARISCAN) 20 ML VIAL IV ONE
== END ==
LOC: CARDFS 09:13
PROVIDERS: ATTEND Physician Assistant
DX: I11.0 Hypertensive heart disease with heart failure (principal); I34.0 Nonrheumatic mitral (valve) insufficiency; I07.1 Rheumatic tricuspid insufficiency
CPT/HCPCS: 93306

== ENCOUNTER → 2022-11-15 | Outpatient (CLI) | payer BC ==
[~2022-11-15] VITALS: Ht 185 cm; Wt 89.5 kg
[~2022-11-15] MED LIST changes: +LIDOCAINE 1% INJ 20 ML VIAL ONE
[2022-11-15 09:55] VITALS: BP 103/68
--- NOTE | 2022-11-15 11:56 | Diagnostic Imaging Report ---
PROCEDURE: US Abdomen, limited. TECHNIQUE: Multiple realtime grayscale images were obtained over the abdomen in various projections. INDICATION: Free fluid seen on recent MRI. COMPARISON: MRI of the abdomen dated 11/06/2022. FINDINGS: Limited sonographic evaluation of the abdomen was performed. There is trace free fluid within the abdomen. This is much less than expected given appearance on recent MRI. IMPRESSION: 1. Trace ascites. Dictated by: Dictated on workstation # [id number]
== END ==
LOC: RAD 09:32
PROVIDERS: ATTEND Surgery
DX: R18.8 Other ascites (principal)
CPT/HCPCS: 76705